=== PATIENT | female | born 1940 | race African-American/Black ===

== ENCOUNTER 2016-10-07 17:16 | Inpatient (IN) | payer OTHER ==
--- NOTE | 2016-10-07 18:35 | EKG Report ---
Test Performed on : 10/07/2016 6:13:19 PM Test Reason : age Blood Pressure : / mmHG Vent. Rate : 071 BPM Atrial Rate : 071 BPM P-R Int : 174 ms QRS Dur : 076 ms QT Int : 400 ms P-R-T Axes : 071 026 069 degrees QTc Int : 434 ms Normal sinus rhythm. Normal ECG No previous ECGs available Unconfirmed Result
--- NOTE | 2016-10-07 18:40 | PROVIDER DOCUMENTATION ---
HPI-General Adult - General Chief Complaint: General Adult Stated Complaint: FALL Time Seen by Provider: 10/07/16 18:25 Source: patient Allergies/Adverse Reactions: Patient Allergies Allergy/AdvReac Type Severity Reaction Status Date / Time Latex, Natural Rubber Allergy Unknown Verified 10/07/16 18:00 morphine Allergy ANAPHYLAXIS Verified 10/07/16 18:00 aspirin AdvReac Unknown Verified 10/07/16 18:00 ibuprofen [From Motrin] AdvReac Unknown Verified 10/07/16 18:00 Home Medications: Amlodipine [Norvasc] 10 mg PO DAILY 11/03/14 Carvedilol 6.25 mg PO BID 11/03/14 LISINOpril [Prinivil] 20 mg PO DAILY 11/03/14 Omeprazole 40 mg PO DAILY 11/03/14 PRAVAstatin [Pravachol] 40 mg PO DAILY 11/03/14 Sitagliptin Phosphate [Januvia] 100 mg PO DAILY 11/03/14 Gabapentin [Neurontin] 1,200 mg PO TID 01/09/15 Insulin NPL/Insulin Lispro [Humalog Mix 75-25 Pen] 25 unit SQ QPM 01/09/15 Insulin NPL/Insulin Lispro [Humalog Mix 75-25 Pen] 35 unit SQ QAM 01/09/15 Promethazine [Phenergan] 25 mg PO Q6H PRN PRN 10/07/16 - History of Present Illness -Gen Adult Nature of Presenting Problems: 75 year old F presents to the ED with a cc of falling. PT states that she began with a cough and diarrhea 2 weeks ago. Pt states that she later developed vomiting about a week later. Pt say her PCP on Tuesday and was given a shot that pt does not know what it was and a Phenergan RX. Pt states that vomiting and diarrhea have resolved. Pt stated today she has fallen x5 today. Pt denies SOB, chest pains, nausea, vomiting, diarrhea, and dizziness. Location of Pain/Injury: reports: none Pain Radiation: reports: no radiation Quality of Pain: reports: none Severity: reports: mild Onset/Duration: reports: this afternoon Timing: reports: still present Context/Activities at Onset: reports: none Modifying Factors: improves with: nothing Associated Symptoms: reports: denies symptoms Similar Symptoms Previously?: No Recently seen or treated by another doctor?: Yes (PCP 2 days ago ) Review of Systems - Adult - REVIEW OF SYSTEMS - ADULT Constitutional: denies: chills, fever Eyes: reports: no symptoms reported Ears, Nose, Mouth & Throat: denies: ear pain, throat pain Cardiovascular: denies: chest pain, palpitations Respiratory: reports: cough. denies: shortness of breath Gastrointestinal: denies: abdominal pain, diarrhea, nausea, vomiting Genitourinary: reports: no symptoms reported Musculoskeletal: denies: bone pain, muscle aches, muscle weakness Integumentary: reports: no symptoms reported Neurological: reports: no symptoms reported Psychiatric: reports: no symptoms reported Endocrine: reports: no symptoms reported Hematologic/Lymphatic: reports: no symptoms reported Allergic/Immunologic: reports: no symptoms reported All Other Systems: Reviewed and Negative Past History - Adult - PAST MEDICAL HISTORY-ADULT Review of Records: reports: Nursing Assessment Review, Medications Reviewed Major Childhood Illnesses: reports: denies history Cardiovascular: reports: HTN Obstetrical/Gynecological: reports: other (breast cancer) Genitourinary: reports: kidney disease (decreased function of right) Endocrine/Immune: reports: Diabetes - PRIOR SURGERIES/PROCEDURES Surgical/Procedure History: reports: appendectomy, hysterectomy - IMMUNIZATION STATUS Childhood Immunizations: See Nurse Assessment Flu Vaccine: See Nurse Assessment - SOCIAL HISTORY Smoking: cigarettes, less than 1 pack/day Provider spent 3-5 mins advising pt. on dangers of tobacco.: Discussed manners to quit use, and f/u contacts for add'l counseling. Substance Use: none/never Alcohol Use Frequency: never Physical Exam-General - PHYSICAL EXAM-ADULT Initial Vital Signs Reviewed: Yes - CONSTITUTIONAL General Appearance: appears well, alert, no apparent distress - RESPIRATORY Respiratory: chest non-tender, lungs clear, normal breath sounds - CARDIOVASCULAR Cardiovascular: normal peripheral pulses, regular rate, rhythm, no edema - GASTROINTESTINAL (ABDOMEN) Abdominal Exam: normal bowel sounds, soft, tenderness (moderate LLQ tenderness) - MUSCULOSKELETAL Back Exam: CVA tenderness (bilateral moderate tenderness) - SKIN Integumentary: normal color, normal turgor, warm/dry Progress - PLAN OF CARE/RESULTS Progress/Plan/Lab Results: plan of care: imaging, labs, fluids, EKG Orders Category Date Time Status Admit - [facility] Routine AdmDCTranf 10/07/16 20:21 Ordered Activity - Bed Rest with BRP ORDERED Care 10/07/16 20:21 Active Call Admitting on Arrival AT ADMISSION Care 10/07/16 20:22 Active Vital Signs Order ARRIVAL TO ROOM Care 10/07/16 20:21 Active Regular Diet Diet 10/07/16 20:23 Active CHEST-2 VIEWS [RAD] Stat Exams 10/07/16 18:41 Taken CBC WITH ELECTRONIC DIFF [HEME] Stat Lab 10/07/16 19:15 Completed CMP [COMPREHENSIVE METABOLIC PANEL] [CHEM] Stat Lab 10/07/16 19:15 Completed MAGNESIUM [CHEM] Stat Lab 10/07/16 19:[address] W/POSS RFLX CULT [URINALYSIS] Stat Lab 10/07/16 18:06 Ordered 0.9% Sodium Chloride Inj [Ns] 1,000 ml Med 10/07/16 18:51 Discontinued IV 999 mls/hr EKG [EKG] Stat Ther 10/07/16 18:06 Draft Laboratory Tests 10/07/16 10/07/16 10/07/16 19:15 19:15 19:15 WBC 6.31 RBC 3.94 L Hgb 12.0 Hct 37.0 MCV 93.9 MCH 30.5 MCHC 32.4 L RDW Std Deviation 14.2 Plt Count 222 MPV 11.1 H Immature Gran % (Auto) 0.2 Neut % (Auto) 55.9 Lymph % (Auto) 30.6 [place] % (Auto) 10.9 H Eos % (Auto) 2.2 Baso % (Auto) 0.2 Immature Gran # (Auto) 0.01 Neut # (Auto) 3.53 Lymph # (Auto) 1.93 [place] # (Auto) 0.69 H Eos # (Auto) 0.14 Baso # (Auto) 0.01 Sodium 137 Potassium 4.4 Chloride 100 Carbon Dioxide 27 Anion Gap 11 BUN 53 H Creatinine 2.6 H Estimated GFR/1.73 m2 18 BUN/Creatinine Ratio 20 Glucose 84 Calculated Osmolality 287 Calcium 8.8 Magnesium 1.6 Total Bilirubin 0.20 AST 26 ALT 13 Alkaline Phosphatase 70 Total Protein 7.3 Albumin 3.7 Globulin 4.0 Albumin/Globulin Ratio 1.0 Vital Signs - 24 hr 10/07/16 17:57 Pulse Rate 76 Respiratory 18 Rate Blood Pressure 169/69 Pt/Family given results. Pt will be admitted to the Hospitalist Group. PT/ Family in agreement with plan of care. - EKG 1 Time of EKG reading by physician:: 18:13 EKG Read and Signed by:: Pantera Webb EKG Interpretation (*Must complete 3 of following elements*): Normal Rate: 71 Rhythm: NSR [place]: normal - XRAY 1 XRAY Study: Chest Impression: Normal XRAY Interpretation: normal: Dr. Webb - CONSULTS/PCP/HOSPITALIST Notification #1 *Consult/PCP/Hospitalist*: Dr. Camejo Time Discussed: 20:19 Consult Disposition: Admit Departure - Departure Time of Disposition Order: 20:24 DIAGNOSIS: Acute kidney injury Disposition: ADMITTED INPATIENT 09 Certified Medical Emergency: Emergent Condition: Stable Referrals: Xavier Curtis MD [Primary Care Provider] - Attestation - Scribe Verification/Attestation Scribe:: Wanda Mena Acting as Scribe for:: Pantrea Webb Scribe documention review:: This chart was documented by a scribe and accurately reflects the service the provider performed and the decisions made by the provider. Physician Attestation - Physician Attestation I, the provider, attest to the following statement:: Pantera Webb Physician documentation Attestation:: This documentation recorded by the scribe accurately reflects the service I personally performed and the decisions made by me.
[2016-10-07] MEDS ORDERED: NS 1,000 ML IV ONE (18:51)
[2016-10-07 19:19] LABS: MANUAL DIFF NEEDED? NO
[2016-10-07 19:26] LABS: BASO% 0.2 % (0.0-0.8); EOS# 0.14 X1000 (0.0-0.7); EOS% 2.2 % (0.0-10.0); IMM GRAN# 0.01 X1000 (0.0-0.04); IMM GRAN% 0.2 % (0.0-0.5); LYMPH# 1.93 X1000 (1.2-3.4); LYMPH% 30.6 % (20.5-51.1); MCH 30.5 PG (27-31); MCHC 32.4 g/dL (33-37); MCV 93.9 FL (81-99); MONO# 0.69 X1000 (0.11-0.59); MONO% 10.9 % (1.7-9.3); MPV 11.1 FL (7.4-10.4); NEUT% 55.9 % (42.2-75.2); PLT 222 X1000 (130-400); RBC 3.94 XMIL (4.2-5.4)
[2016-10-07 20:04] LABS: ALBUMIN 3.7 g/dL (3.5-5.0); CALCIUM 8.8 mg/dL (8.8-10.2); POTASSIUM 4.4 mmol/L (3.5-5.1); TOTAL BILIRUBIN 0.2 mg/dL (0.20-1.00); TOTAL PROTEIN 7.3 g/dL (6.3-8.3)
[2016-10-07] MEDS ORDERED: HUMALOG MIX 75/25 SUBQ SCH (21:43)
[2016-10-07] MEDS: COREG PO SCH (22:24)
[2016-10-07] MEDS: MAG-OX PO SCH (22:24)
[2016-10-07] MEDS: NS 1,000 ML IV SCH (22:46)
[2016-10-08] MEDS: PRILOSEC PO SCH (06:35)
--- NOTE | 2016-10-08 08:09 | Diag Imaging Result Document ---
PROCEDURE NAME: CHEST-2 VIEWS - 10/07/2016 CHEST, TWO VIEWS: INDICATION: Cough. COMPARISON: No comparison studies. FINDINGS: The cardiomediastinal silhouette is within normal limits. The pulmonary vasculature is not congested. No infiltrates or effusions are identified. There is no pneumothorax. There are surgical clips, left axilla. There is spondylosis and mild compression deformity, thoracic spine. Old healed fracture of the left proximal humerus is noted. IMPRESSION: No acute cardiopulmonary abnormality.
[2016-10-08 08:29] LABS: ALBUMIN 3.1 g/dL (3.5-5.0); CALCIUM 8.3 mg/dL (8.8-10.2); MAGNESIUM 1.5 mg/dL (1.5-2.7); POTASSIUM 4.1 mmol/L (3.5-5.1); TOTAL BILIRUBIN 0.3 mg/dL (0.20-1.00); TOTAL PROTEIN 6.1 g/dL (6.3-8.3)
[2016-10-08 08:32] LABS: HEMATOCRIT 32.5 % (37.0-47.0); HEMOGLOBIN 10.5 g/dL (12.0-16.0); MCH 30.6 PG (27-31); MCHC 32.3 g/dL (33-37); MCV 94.8 FL (81-99); MPV 11.2 FL (7.4-10.4); RBC 3.43 XMIL (4.2-5.4)
[2016-10-08] MEDS ORDERED: HUMALOG MIX 75/25 SUBQ SCH (09:00)
[2016-10-08] MEDS ORDERED: PRINIVIL PO SCH (09:00)
[2016-10-08] MEDS: HUMALOG MIX 75/25 SUBQ SCH ×2 (10:00→17:49)
[2016-10-08] MEDS: NEURONTIN PO SCH ×3 (10:01→17:49)
[2016-10-08] MEDS: NORVASC PO SCH ×2 (10:01→10:11)
[2016-10-08] MEDS: MAG-OX PO SCH ×2 (10:01→10:10)
[2016-10-08] MEDS: COREG PO SCH ×2 (10:01→20:39)
[2016-10-08] MEDS: VITAMIN D PO SCH ×2 (10:01→10:12)
[2016-10-08] MEDS: JANUVIA PO SCH ×2 (10:02→10:09)
--- NOTE | 2016-10-08 10:29 | PROGRESS NOTE ---
DATE: 10/08/2016 SUBJECTIVE: The patient states she is still having diarrhea. Denies any blood in her stool. Denies any nausea or vomiting. Denies any true abdominal pain. Denies fevers or chills. Denies chest pain. OBJECTIVE: Vital signs: Temperature 98.5. Pulse 70. Respiratory 18. BP 121/49. General: Patient is well developed, well nourished. She is pleasant to talk with. She is in no respiratory distress. She is awake, alert, and oriented. Neck: Supple. CV: Regular rate. Chest: Clear. Abdomen: Soft. Diffusely, very mildly tender. Extremities: Moves all extremities. Neurologic: No changes. LABORATORY DATA: CBC normal. BUN 43. Creatinine 2.0. Glucose 109. Albumin 3.1. ASSESSMENT: 1. Acute diarrhea of uncertain etiology, likely viral. Stool studies pending. 2. Acute renal failure. Serum creatinine has improved since last night, although, she has only been on IV fluids for approximately 8-12 hours. Creatinine is now 2.0. 3. Presyncope. Patient has not been out of bed since her admission. We will continue to follow. 4. Hypertension. Will hold her lisinopril today as this certainly could be worsening her kidney function. Likely dehydration is what started the issue. 5. Diabetes. Will continue her home medication. PLAN: As noted, we will hold her lisinopril, continue IV fluids, continue to follow, and will recheck her creatinine in the morning. Hopefully, home in a few days.
--- NOTE | 2016-10-08 12:10 | HISTORY AND PHYSICAL ---
PRIMARY CARE PHYSICIAN: Xavier Curtis MD CHIEF COMPLAINT: Falling x5 at home but yesterday HISTORY OF PRESENTING ILLNESS: This is a 75-year-old female who presented to [facility] ER with complaints of a fall x5. States that about 2 weeks ago, she had a cough and diarrhea and later developed vomiting. She saw her primary care physician at that time, who gave her a shot, unknown what the shot was and a Phenergan prescription. Stated that the vomiting and diarrhea had resolved but that prior to arriving, she had fallen at home 5 times. She denied any dizziness, headache, and blurred vision. Workup in the ER showed a BUN of 53 and a creatinine of 2.6. It appears her baseline is anywhere from 1.5 to 1.8. Chest x-ray showed no acute cardiopulmonary abnormality. She was admitted for further evaluation and treatment. PAST MEDICAL HISTORY: Fibromyalgia, diabetes type 2, breast cancer, and a small bowel obstruction. PAST SURGICAL HISTORY: Left mastectomy, hysterectomy, appendectomy, and lysis of lesions. FAMILY HISTORY: Coronary artery disease, and congestive heart failure. SOCIAL HISTORY: She currently lives with family. Smokes 3-4 cigarettes a day and has done so for the past 50 years. Denies any alcohol or illicit drug use. ALLERGIES: Codeine, latex, and natural rubber, morphine and aspirin. HOME MEDICATIONS: She takes Norvasc 10 mg p.o. daily, Coreg 6.25 mg p.o. b.i.d., vitamin D3 5000 units p.o. daily, Neurontin 1200 mg p.o. t.i.d., Humalog 75/25 pen 25 units q.p.m. and 35 units subcutaneous q.a.m., Prinivil 20 mg p.o. daily, magnesium oxide 800 mg p.o. b.i.d., omeprazole 40 mg p.o. daily, Pravachol 40 mg p.o. daily, and Januvia 100 mg p.o. daily. LABORATORY DATA: Showed a white blood cell count of 6.31, hemoglobin 12, hematocrit 37, platelets 222,000. Sodium 137, potassium 4.4, chloride 100, CO2 27, BUN of 53, creatinine 2.6, magnesium 1.6. Chest x-ray showed no acute cardiopulmonary abnormality. EKG showed normal sinus rhythm at 71. REVIEW OF SYSTEMS: She denied any fever, chills, blurred vision, dizziness, chest pain, coughing, shortness of breath. She denied any constipation, diarrhea, burning or hurting with urination. PHYSICAL EXAMINATION: VITAL SIGNS: Temperature 97.7 degrees, pulse 73, respirations 18, blood pressure is 165/44, saturating 98% on room air. GENERAL: This is a 75-year-old female, who is sitting on the side of the bed. Answers questions appropriately. HEENT: Normocephalic and atraumatic. Pupils are equal, round, reactive to light. Extraocular movements are intact. The oropharynx and nares are clear. NECK: Supple. LUNGS: Clear to auscultation bilaterally with equal lung expansion and chest wall movement. HEART: With regular rate and rhythm. No murmurs, rubs, or gallops. ABDOMEN: Soft, nontender, nondistended. Bowel sounds are present x4 quadrants. EXTREMITIES: No clubbing, cyanosis, or edema. NEUROLOGICAL: The cranial nerves 2-12 appear grossly intact. ASSESSMENT: 1. Fall. 2. Acute kidney injury. 3. Diabetes type 2. 4. Tobacco abuse. PLAN: She was admitted to the medical unit at [facility]. Placed on a regular diet. We will check a urinalysis today. Physical therapy evaluation. Continue her home medications as previously identified, except we will hold her lisinopril. She has normal saline at 75 mL an hour. We will recheck a CBC and BMP in the a.m. Dictated by SIVAN Griffin for Jean Camejo MD
[2016-10-08] MEDS: NS 1,000 ML IV SCH (12:50)
[2016-10-08] MEDS ORDERED: PNEUMOVAX 23 IM ONE (19:15)
[2016-10-08] MEDS: PRAVACHOL PO SCH (20:39)
[2016-10-09] MEDS: NS 1,000 ML IV SCH ×2 (02:00→16:37)
[2016-10-09] MEDS ORDERED: D50W SYRINGE IV ONE (05:58)
[2016-10-09 05:59] LABS: MANUAL DIFF NEEDED? NO
[2016-10-09 06:13] LABS: BASO% 0.2 % (0.0-0.8); EOS# 0.16 X1000 (0.0-0.7); EOS% 3.4 % (0.0-10.0); HEMATOCRIT 36.5 % (37.0-47.0); IMM GRAN# 0.03 X1000 (0.0-0.04); IMM GRAN% 0.6 % (0.0-0.5); LYMPH# 1.44 X1000 (1.2-3.4); LYMPH% 30.8 % (20.5-51.1); MCH 30.7 PG (27-31); MCHC 32.9 g/dL (33-37); MCV 93.4 FL (81-99); MONO# 0.53 X1000 (0.11-0.59); MONO% 11.3 % (1.7-9.3); MPV 11.6 FL (7.4-10.4); NEUT% 53.7 % (42.2-75.2); PLT 201 X1000 (130-400); RBC 3.91 XMIL (4.2-5.4)
[2016-10-09 06:29] LABS: CALCIUM 8.6 mg/dL (8.8-10.2); POTASSIUM 4.6 mmol/L (3.5-5.1)
[2016-10-09] MEDS: PRILOSEC PO SCH (06:41)
[2016-10-09] MEDS: COREG PO SCH ×2 (08:30→20:40)
[2016-10-09] MEDS: NEURONTIN PO SCH ×3 (08:32→16:39)
[2016-10-09] MEDS: HUMALOG MIX 75/25 SUBQ SCH ×2 (08:32→18:42)
[2016-10-09 09:06] LABS: HEMOGLOBIN A1C 6.2 % (4.8-6.0)
--- NOTE | 2016-10-09 10:09 | PROGRESS NOTE ---
DATE: 10/09/2016 SUBJECTIVE: Patient resting quietly in bed. States legs are aching. Otherwise , no complaints voiced. The patient also states that she had a low with her blood sugar this morning and states that her insulin she is supposed to take 35 units in the morning and 25 units in the p.m. OBJECTIVE: Vital signs: Temperature 97.4, pulse 66. Respirations 16. Blood pressure 182/79, saturating 100% on room air. General: This is a 75-year-old, female lying in the bed, and answers questions appropriately. HEENT: Normocephalic and atraumatic. Pupils are equal, round, reactive to light. Extraocular movements are intact. Oropharynx and nares are clear. Neck: Supple. Lungs: Clear to auscultation bilaterally with equal lung expansion and chest wall movement. Heart with regular rate and rhythm. No murmurs, rubs, or gallops. Abdomen: Abdomen is soft, nontender, nondistended. Bowel sounds are present x4 quadrants. Extremities: No clubbing, cyanosis, or edema. Neurological: Cranial nerves 2-12 appear grossly intact. LABORATORY DATA: Shows a white blood cell count of 4.67, hemoglobin 12, hematocrit 36.5, platelets 201. Sodium of 141, potassium 4.6, chloride 107, CO2 of 23, BUN of 35 , creatinine 1.6, glucose was 45 this morning. Hemoglobin A1c was 6.2. Triglycerides of 120, cholesterol 221. ASSESSMENT AND PLAN: 1. Acute diarrhea of uncertain etiology. The patient states that she is no longer having any diarrhea. We have ordered stool studies, but she has not had any stool since that was ordered yesterday morning. Instructed patient that if she does have a stool that we do still need a sample, so that we can do the stool studies. We will continue to follow. 2. Acute renal failure. Her serum creatinine continues to improve. Continue her IV hydration and recheck a BMP in the a.m. 3. Hypertension. We will continue her medication regimen at this time. We continue to hold her lisinopril as that certainly could be causing her acute renal failure. 4. Diabetes. The patient was noted to have some hypoglycemia this morning. She felt like it may be because we were giving her insulin wrong, but in review, her insulin is ordered correctly. She takes Humalog 75/25, 35 units q.a.m. and 25 units q.p.m. and that has been ordered correctly since admission. Dictated by SIVAN Griffin for Jose Gerard MD agree with above, home in am if stable [facility] MTDD
[2016-10-09] MEDS: NORCO-7.5 PO PRN ×2 (16:18→20:39)
[2016-10-09] MEDS: PRAVACHOL PO SCH (20:40)
[2016-10-10] MEDS: NORCO-7.5 PO PRN ×2 (06:24→12:53)
[2016-10-10 06:25] LABS: MANUAL DIFF NEEDED? NO
[2016-10-10] MEDS: PRILOSEC PO SCH (06:25)
[2016-10-10] MEDS: NS 1,000 ML IV SCH ×2 (06:27→16:50)
[2016-10-10 06:34] LABS: BASO% 0.3 % (0.0-0.8); EOS# 0.13 X1000 (0.0-0.7); EOS% 3.4 % (0.0-10.0); HEMATOCRIT 33.6 % (37.0-47.0); HEMOGLOBIN 10.5 g/dL (12.0-16.0); IMM GRAN# 0.01 X1000 (0.0-0.04); IMM GRAN% 0.3 % (0.0-0.5); LYMPH# 1.62 X1000 (1.2-3.4); LYMPH% 42.2 % (20.5-51.1); MCH 29.3 PG (27-31); MCHC 31.3 g/dL (33-37); MCV 93.9 FL (81-99); MPV 11.2 FL (7.4-10.4); NEUT% 40.8 % (42.2-75.2); PLT 201 X1000 (130-400); RBC 3.58 XMIL (4.2-5.4)
[2016-10-10 06:43] LABS: CALCIUM 8.9 mg/dL (8.8-10.2); POTASSIUM 5.3 mmol/L (3.5-5.1)
[2016-10-10] MEDS: NEURONTIN PO SCH ×3 (08:52→16:50)
[2016-10-10] MEDS: COREG PO SCH ×2 (08:52→20:35)
[2016-10-10] MEDS: HUMALOG MIX 75/25 SUBQ SCH ×3 (08:53→18:50)
[2016-10-10] MEDS ORDERED: HUMALOG MIX 75/25 SUBQ SCH (16:15)
--- NOTE | 2016-10-10 16:39 | PROGRESS NOTE ---
DATE: 10/10/2016 SUBJECTIVE: Patient has no complaints. OBJECTIVE: Vital Signs: Blood pressure 175/49, heart rate 61, respiratory rate 18, temperature 98.4 degrees. Cardiovascular: Regular rate and rhythm. Pulmonary: Bilateral breath sounds. Clear to auscultation. GI: Soft, nontender, nondistended. Bowel sounds are positive. LABORATORY DATA: White count 3.8, hemoglobin and hematocrit 10 and 33, platelets 201,000. Chemistry: Potassium is 5.3, BUN and creatinine of 32, 1.5. Sugars have actually been better controlled. PROBLEM LIST: 1. Diarrhea. She appears to be stabilizing. 2. Acute kidney injury. She is improving on current regimen. 3. She had episodic hyperglycemia. Her sugars have overall looked okay, but I guess she dropped into reportedly down to 30, that was this yesterday morning. Her A1C is only 6.2, so I will drop her nighttime NPH to 20 instead of 30 and we will continue to follow. 4. Weakness. We will work on physical therapy and follow closely. She is complaining of a lot of cramping. I am just going to check a CK level because she is on a statin and we will set up home physical therapy and home to assist with rehabilitation. Likely discharge tomorrow if stable.
[2016-10-10] MEDS: PRAVACHOL PO SCH (20:35)
[2016-10-11] MEDS: NORCO-7.5 PO PRN (00:56)
[2016-10-11] MEDS: PRILOSEC PO SCH (06:12)
[2016-10-11] MEDS: NS 1,000 ML IV SCH (06:21)
[2016-10-11 06:57] LABS: HEMATOCRIT 32.1 % (37.0-47.0); HEMOGLOBIN 10.2 g/dL (12.0-16.0); MCH 29.8 PG (27-31); MCHC 31.8 g/dL (33-37); MCV 93.9 FL (81-99); MPV 11.4 FL (7.4-10.4); RBC 3.42 XMIL (4.2-5.4)
[2016-10-11 07:19] LABS: CALCIUM 8.4 mg/dL (8.8-10.2)
[2016-10-11] MEDS: HUMALOG MIX 75/25 SUBQ SCH (08:45)
[2016-10-11] MEDS: COREG PO SCH (08:46)
[2016-10-11] MEDS: NEURONTIN PO SCH ×2 (08:46→13:21)
[2016-10-11 11:28] VITALS: BP 176/53
--- NOTE | 2016-10-11 22:29 | DISCHARGE SUMMARY ---
ADMISSION DATE: 10/07/2016 DISCHARGE DATE: 10/11/2016 CHIEF COMPLAINT: Weakness and cramping in her lower extremities. ADMISSION DIAGNOSES: 1. Fall. 2. Acute kidney injury. 3. Type 2 diabetes. DISCHARGE DIAGNOSES: 1. Fall. 2. Type 2 diabetes. 3. Generalized weakness. 4. Acute kidney injury. 5. Hypoglycemia but keeps on reporting it is hyperglycemia. 6. Some diarrhea which was noninfectious. HOSPITAL COURSE: Briefly, this 75-year-old female presents from home with cough, diarrhea and vomiting was given Phenergan as outpatient but did not improve. She came in with a BUN and creatinine of 53 and 2.6 with a baseline between 1.5 and 1.8. Chest x-ray was normal. She was placed in the hospital, given IV fluids, slowly clinically improved. Lisinopril was held. IV fluids were continued. Her creatinine improved. By the I think she was down to baseline but she was still having a lot of cramping. She had some diarrhea, was , and she had some episodic hypoglycemia associated. On the her vitals had stabilized. Her laboratory data hemoglobin and hematocrit was 10 and 30. Chemistry showed a BUN and creatinine 29 and 1.6. Low sugar was 67 but the rest of them were stable. She did have a mild elevation in her CPK which may be related to her Pravachol. At this point I am just going to recommend holding that because she is having cramping and she had mild elevation in her CPK. DISCHARGE MEDICATIONS: 1. Coreg 6.25. 2. Omeprazole 40 daily. 3. Lispro 35 in the morning and then 20 at night. 4. Neurontin 600 t.i.d. 5. Phenergan p.r.n. 6. Colace 100 b.i.d. as needed for bowels. 7. Again we have held her chlorthalidone and Pravachol till followup with her PCP, Dr. Curtis. I would repeat BNP in 1-2 weeks and follow up as needed. We did set her up with physical therapy at home just to aid with rehabilitation. TOTAL TIME SPENT ON DISCHARGE: 32 minutes.
== END 2016-10-11 15:21 | disposition home health service (06) | DRG 684 ==
LOC: P.ED 17:16 → P.MEDSURG 20:49 → OBSVTOIN 20:49 → P.MEDSURG 10-10 09:06
PROVIDERS: ATTEND Internal Medicine
DX: N17.9 Acute kidney failure, unspecified (principal); E11.649 Type 2 diabetes mellitus with hypoglycemia without coma; F17.210 Nicotine dependence, cigarettes, uncomplicated; M79.7 Fibromyalgia; E86.0 Dehydration; K52.9 Noninfective gastroenteritis and colitis, unspecified; Z91.81 History of falling; Z85.3 Personal history of malignant neoplasm of breast; Z82.49 Family history of ischemic heart disease and other diseases of the circulatory system; Z79.4 Long term (current) use of insulin; Z79.899 Other long term (current) drug therapy
CPT/HCPCS: 36415; 71020; 80048; 80053; 80061; 82550; 82948; 83036; 83721; 83735; 85025; 85027; 87045; 87046; 87324; 89055; 93005; 99285; J1815; J7030

== ENCOUNTER 2017-01-25 02:28 | Inpatient (IN) ==
[2017-01-25] MEDS ORDERED: D5 NS 1,000 ML IV ONE (02:45)
[2017-01-25] MEDS ORDERED: D5 NS 1,000 ML ONE (02:46)
[2017-01-25 02:54] LABS: MANUAL DIFF NEEDED? NO
--- NOTE | 2017-01-25 03:21 | EKG Report ---
Test Performed on : 01/25/2017 03:10:54 AM Test Reason : cp Blood Pressure : / mmHG Vent. Rate : 052 BPM Atrial Rate : 052 BPM P-R Int : 186 ms QRS Dur : 074 ms QT Int : 464 ms P-R-T Axes : 074 028 069 degrees QTc Int : 431 ms Sinus bradycardia. Otherwise normal ECG When compared with ECG of 07-OCT-2016 18:13, No significant change was found Confirmed by Ranjit Romero MD ([id number]) on 01/26/2017 8:38:51 PM
[2017-01-25 03:24] LABS: BASO% 0.2 % (0.0-0.8); EOS# 0.21 X1000 (0.0-0.7); EOS% 3.9 % (0.0-10.0); HEMATOCRIT 35.1 % (37.0-47.0); HEMOGLOBIN 11.5 g/dL (12.0-16.0); IMM GRAN# 0.01 X1000 (0.0-0.04); IMM GRAN% 0.2 % (0.0-0.5); LYMPH# 1.61 X1000 (1.2-3.4); LYMPH% 29.9 % (20.5-51.1); MCH 30.8 PG (27-31); MCHC 32.8 g/dL (33-37); MCV 94.1 FL (81-99); MONO# 0.63 X1000 (0.11-0.59); MONO% 11.7 % (1.7-9.3); MPV 10.7 FL (7.4-10.4); NEUT% 54.1 % (42.2-75.2); PLT 202 X1000 (130-400); RBC 3.73 XMIL (4.2-5.4)
[2017-01-25 03:40] LABS: AGAP 12; ALBUMIN 3.7 g/dL (3.5-5.0); ALKALINE PHOSPHATASE 87 U/L (32-104); BUN 52 mg/dL (8-22); CALCIUM 9.2 mg/dL (8.8-10.2); CHLORIDE 106 mmol/L (98-107); COSMO 289; GOT 18 U/L (10-30); GPT 13 U/L (10-36); POTASSIUM 5.3 mmol/L (3.5-5.1); SODIUM 136 mmol/L (136-145); TCO2 19 mmol/L (25-35); TOTAL BILIRUBIN < 0.15 mg/dL (0.20-1.00); TOTAL PROTEIN 7.3 g/dL (6.3-8.3)
[2017-01-25] MEDS ORDERED: NS 1,000 ML IV ONE (05:13)
[2017-01-25 15:08] LABS: HEMOGLOBIN A1C 5.9 % (4.8-6.0)
[2017-01-25] MEDS ORDERED: MOTRIN PO PRN (16:00)
[2017-01-25] MEDS: HUMALOG DOSE (PARKWAY) SUBQ SCH ×2 (16:55→21:20)
[2017-01-25] MEDS: NEURONTIN PO SCH (17:04)
--- NOTE | 2017-01-25 17:51 | HISTORY AND PHYSICAL ---
PRIMARY CARE PHYSICIAN: Dr. Curtis. CHIEF COMPLAINT: Found unresponsive in bed by with low blood sugar. HISTORY OF PRESENTING ILLNESS: This is a 76-year-old female who presented to [facility] via EMS early this morning after her found her next to him in the bed unresponsive. He called 911. EMS arrived. Her blood sugar was noted to be 25. They gave her an amp of D50 and brought her into the emergency room. When she arrived, her blood sugar was up to 350 but she was still unresponsive at that time. She was given D5 at 100 mL an hour. She finally aroused and is alert and awake but was admitted for further evaluation and treatment. PAST MEDICAL HISTORY: Of hypertension, breast cancer, chronic kidney disease and diabetes type 2. PAST SURGICAL HISTORY: Appendectomy and a hysterectomy. FAMILY HISTORY: Noncontributory. SOCIAL HISTORY: She currently lives with family. Denies any tobacco, alcohol, or illicit drug use. ALLERGIES: Codeine, latex natural rubber, morphine and aspirin. HOME MEDICATIONS: She takes Norvasc 10 mg p.o. daily. Lipitor 40 mg p.o. daily. Coreg 6.25 mg p.o. b.i.d. Chlorthalidone 25 mg p.o. daily. Neurontin 600 mg p.o. t.i.d. [place] 7.5 p.o. q.6 hours p.r.n. Ibuprofen 400 mg as directed. Humalog 75/25 pen 25 units subcutaneous q.p.m., 35 units subcutaneous q.a.m. Cozaar 50 mg p.o. daily. Magnesium oxide 800 mg p.o. b.i.d. Omeprazole 40 mg p.o. daily. Phenergan 25 mg p.o. q.6 hours p.r.n. we will hold. LABORATORY DATA: Showed a white blood cell count of 5.38, hemoglobin 11.5, hematocrit 35.1, platelets 202,000. Sodium 136, potassium 5.3, chloride 106, CO2 19, BUN of 52 with a creatinine of 2.1. Blood sugar on arrival was 156. Again it is noted she was 25 at home when EMS arrived. EKG showed sinus bradycardia at 52. Her hemoglobin A1c is 5.9. REVIEW OF SYSTEMS: She denied any fever, chills, blurred vision, dizziness, chest pain, coughing, shortness of breath. She denied any constipation, diarrhea, burning or hurting with urination. PHYSICAL EXAMINATION: On arrival she had a temperature of 94 degrees with a pulse of 62, respirations 14, blood pressure 156/63, saturating 99% on room air. Currently she is at 98.7 temp, blood pressure 150/47, saturating 100% on room air. GENERAL: This is a 76-year-old female lying in the bed, and answers questions appropriately at this time. HEENT: Normocephalic and atraumatic. Pupils are equal, round, reactive to light. Extraocular movements are intact. Oropharynx and nares are clear. NECK: Supple. LUNGS: Clear to auscultation bilaterally with equal lung expansion and chest wall movement. HEART: With regular rate and rhythm. No murmurs, rubs, or gallops. ABDOMEN: Soft, nontender, nondistended. Bowel sounds are present x4 quadrants. EXTREMITIES: There is no clubbing, cyanosis, or edema. NEUROLOGICAL: The cranial nerves 2-12 are grossly intact. ASSESSMENT: 1. Diabetes type 2 with hypoglycemia. 2. Hypothermic. 3. Chronic kidney disease. 4. Hypertension. PLAN: She was admitted to the medical unit at [place], placed on telemetry, diabetic diet. She was initially placed on D5 at 100. Her blood sugars have now normalized. We discontinued that and she was placed on her home medication regimen. Pattern blood sugars with sliding scale insulin. We will recheck a CBC and a BMP in the a.m. Place her on a diabetic diet. Dictated by SIVAN Griffin for Jean Camejo MD cc: SIVAN Griffin MD Malcolm R. Hendricks, MD
[2017-01-25] MEDS: MAG-OX PO SCH (20:22)
[2017-01-25] MEDS: COREG PO SCH ×2 (20:22→20:23)
[2017-01-25] MEDS ORDERED: HUMALOG MIX 75/25 SUBQ SCH (21:00)
[2017-01-26] MEDS: NORCO-7.5 PO PRN ×2 (00:19→10:54)
[2017-01-26 05:56] LABS: MANUAL DIFF NEEDED? NO
[2017-01-26] MEDS: HUMALOG DOSE (PARKWAY) SUBQ SCH ×2 (06:15→10:56)
[2017-01-26 06:46] LABS: CALCIUM 8.6 mg/dL (8.8-10.2); POTASSIUM 5.9 mmol/L (3.5-5.1)
[2017-01-26] MEDS ORDERED: PRILOSEC PO SCH (07:00)
[2017-01-26 07:21] LABS: BASO% 0.2 % (0.0-0.8); EOS# 0.26 X1000 (0.0-0.7); EOS% 5.7 % (0.0-10.0); HEMATOCRIT 36.5 % (37.0-47.0); HEMOGLOBIN 11.9 g/dL (12.0-16.0); IMM GRAN# 0.01 X1000 (0.0-0.04); IMM GRAN% 0.2 % (0.0-0.5); LYMPH% 41.5 % (20.5-51.1); MCH 30.9 PG (27-31); MCHC 32.6 g/dL (33-37); MCV 94.8 FL (81-99); MONO% 13.1 % (1.7-9.3); MPV 10.8 FL (7.4-10.4); NEUT% 39.3 % (42.2-75.2); PLT 193 X1000 (130-400); RBC 3.85 XMIL (4.2-5.4)
[2017-01-26] MEDS: COREG PO SCH (08:40)
[2017-01-26] MEDS: MAG-OX PO SCH (08:41)
[2017-01-26] MEDS: NEURONTIN PO SCH ×2 (08:41→12:46)
[2017-01-26] MEDS ORDERED: HUMALOG MIX 75/25 SUBQ SCH (09:00)
[2017-01-26] MEDS ORDERED: NORVASC PO SCH (09:00)
[2017-01-26] MEDS ORDERED: HYGROTON PO SCH (09:00)
[2017-01-26] MEDS ORDERED: COZAAR PO SCH (09:00)
[2017-01-26 11:03] VITALS: BP 138/44
[2017-01-26] MEDS ORDERED: HUMALOG MIX 75/25 ONE (12:00)
[2017-01-26] MEDS ORDERED: KAYEXALATE PO ONE (12:08)
[2017-01-26] MEDS ORDERED: LIPITOR PO SCH (21:00)
--- NOTE | 2017-01-27 04:52 | DISCHARGE SUMMARY ---
ADMISSION DATE: 01/25/2017 DISCHARGE DATE: 01/26/2017 PRIMARY CARE PHYSICIAN: Dr. Xavier Curtis. ADMISSION DIAGNOSES: 1. Diabetes type 2, with hypoglycemia. 2. Hypothermia. 3. Chronic kidney disease. 4. Hypertension. DISCHARGE DIAGNOSES: 1. Diabetes type 2, with hypoglycemic episodes. 2. Hypothermia, resolved. 3. Chronic kidney disease. 4. Hypertension. 5. Hyperkalemia. SUMMARY OF FINDINGS: This is a 76-year-old female who presented to the emergency room after her found her next him in the bed unresponsive. Called 911. When EMS arrived, her blood sugar was 25. They gave her an amp of D50 and brought her to the emergency room. When she arrived to the emergency room, her blood sugar was registering 350. She was still unresponsive at that time. She was given D5 at 100 mL an hour. She aroused, and has been alert and awake since then. She was admitted. We checked her hemoglobin A1c, and it was noted to be 5.9. Her creatinine was 2.1 on arrival. Today, it is down to 1.7. She has a slight elevation in her potassium today at 5.9. We are going to give her Kayexalate 15 g p.o. x1 today. Blood sugars are still somewhat erratic. During the night last night at 1:09, she had another hypoglycemic event at 48, but she did receive her Humalog 75/25, 25 units. We are going to decrease that to 15 units subcutaneous q.p.m., and it is felt that she can safely be discharged home to follow up with her primary care physician in 1-2 weeks. She will call his office for an appointment. She will also have home health through [facility]. DISCHARGE MEDICATIONS: 1. Norvasc 10 mg p.o. daily. 2. Atorvastatin 40 mg p.o. daily. 3. Coreg 6.25 mg p.o. b.i.d. 4. Chlorthalidone 25 mg p.o. daily. 5. Colace liquid 100 mg p.o. b.i.d. 6. Neurontin 600 mg p.o. t.i.d. 7. [place] 7.5 one p.o. q.6 hours p.r.n. 8. Ibuprofen 400 mg as directed. 9. Humalog Pen 75/25. She will take 35 units subcutaneous q.a.m. and 15 units subcutaneous q.p.m. 10. Cozaar 50 mg p.o. daily. 11. Magnesium oxide 800 mg p.o. b.i.d. 12. Omeprazole 40 mg p.o. daily. 13. Phenergan 25 mg p.o. q.6 hours p.r.n. TIME SPENT: 35 minutes. Dictated by SIVAN Griffin for Jose Gerard MD cc: SIVAN Griffin MD Malcolm R. Hendricks, MD
--- NOTE | 2017-01-28 16:51 | PROVIDER DOCUMENTATION ---
This chart was entered by Theresa Brady, acting as scribe for Ranjit Romero MD. HPI-General Adult - General Chief Complaint: Low Blood Sugar Stated Complaint: low blood sugar Time Seen by Provider: 01/25/17 02:54 Source: patient Allergies/Adverse Reactions: Patient Allergies Allergy/AdvReac Type Severity Reaction Status Date / Time codeine Allergy ITCHING Verified 01/25/17 02:33 Latex, Natural Rubber Allergy Unknown Verified 01/25/17 02:33 morphine Allergy ANAPHYLAXIS Verified 01/25/17 02:33 aspirin AdvReac Unknown Verified 01/25/17 02:33 Home Medications: Home Medication List Medication Instructions Recorded Confirmed Last Taken Type Carvedilol 6.25 mg PO BID 11/03/14 01/25/17 06/21/15 09:00 History Omeprazole 40 mg PO DAILY 11/03/14 10/07/16 06/21/15 09:00 History Gabapentin [Neurontin] 600 mg PO TID 01/09/15 01/25/17 06/21/15 09:00 History Insulin NPL/Insulin Lispro 35 unit SQ QAM 01/09/15 01/25/17 06/21/15 09:00 History [Humalog Mix 75-25 Pen] Docusate Sodium [Colace Liquid] 100 mg PO BID #60 udc 04/02/16 10/07/16 Unknown Rx Promethazine [Phenergan] 25 mg PO Q6H PRN PRN 10/07/16 10/07/16 Unknown History ATORVAstatin [Lipitor] 40 mg PO DAILY 01/25/17 01/25/17 Unknown History Amlodipine [Norvasc] 10 mg PO DAILY 01/25/17 01/25/17 Unknown History Chlorthalidone 25 mg PO DAILY 01/25/17 01/25/17 Unknown History Hydrocodone/APAP 7.5 mg/325 mg 1 each PO Q6H PRN PRN 01/25/17 01/25/17 Unknown History [[place]-7.5] Ibuprofen 400 mg PO DIRECTED 01/25/17 01/25/17 Unknown History Losartan [Cozaar] 50 mg PO DAILY 01/25/17 01/25/17 Unknown History Magnesium Oxide 800 mg PO BID 01/25/17 01/25/17 Unknown History Insulin NPL/Insulin Lispro 15 unit SQ QPM #0 01/26/17 01/25/17 06/21/15 09:00 Rx [Humalog Mix 75-25 Pen] - History of Present Illness -Gen Adult Nature of Presenting Problems: pt arrived by EMS to ER with cc of low blood sugar and unresponsiveness. EMS states that found her in bed next to her and she was unresponsive when EMS arrived her blood sugar was 25, they gave her an AMP of D50 and it brought her sugar up to 350 but pt is still unresponsive Location of Pain/Injury: reports: none Pain Radiation: reports: no radiation Quality of Pain: reports: none Onset/Duration: reports: just prior to arrival Timing: reports: gone now (looking around confused) Context/Activities at Onset: reports: none Modifying Factors: improves with: nothing Similar Symptoms Previously?: No Recently seen or treated by another doctor?: No - Diabetes Related Context Context: reports: low blood sugar Review of Systems - Adult - REVIEW OF SYSTEMS - ADULT Constitutional: denies: chills, fever, fatique Eyes: denies: discharge, dry eyes, blurred vision Ears, Nose, Mouth & Throat: reports: no symptoms reported Cardiovascular: reports: no symptoms reported Respiratory: reports: no symptoms reported Gastrointestinal: reports: no symptoms reported Genitourinary: reports: no symptoms reported Musculoskeletal: reports: no symptoms reported Integumentary: reports: no symptoms reported Neurological: reports: other (unresponsive). denies: loss of balance, numbness , paresthesia, seizure Psychiatric: reports: no symptoms reported Endocrine: reports: other (low blood sugar) Hematologic/Lymphatic: reports: no symptoms reported Allergic/Immunologic: reports: no symptoms reported All Other Systems: Reviewed and Negative Past History - Adult - PAST MEDICAL HISTORY-ADULT Review of Records: reports: Old Records Reviewed, Nursing Assessment Review Major Childhood Illnesses: reports: denies history Cardiovascular: reports: HTN Obstetrical/Gynecological: reports: other (breast cancer) Genitourinary: reports: kidney disease (decreased function of right) Endocrine/Immune: reports: Diabetes - PRIOR SURGERIES/PROCEDURES Surgical/Procedure History: reports: appendectomy, hysterectomy - IMMUNIZATION STATUS Childhood Immunizations: See Nurse Assessment Flu Vaccine: See Nurse Assessment Physical Exam-General - PHYSICAL EXAM-ADULT Initial Vital Signs Reviewed: Yes - CONSTITUTIONAL General Appearance: moderate distress, lethargic, slow to respond - EYES Eyes: PERRL/EOMI, pink conjunctivae - HEAD, EARS, NOSE, MOUTH & THROAT HENMT: moist mucous membranes, normal ENT inspection, TMs normal, pharynx normal - NECK Neck: non-tender, full range of motion - RESPIRATORY Respiratory: chest non-tender, lungs clear, normal breath sounds, no pleuratic chest pain, no respiratory distress, no accessory muscle use - CARDIOVASCULAR Cardiovascular: normal peripheral pulses, regular rate, rhythm, no edema, no gallop, no JVD, no murmur - GASTROINTESTINAL (ABDOMEN) Abdominal Exam: normal bowel sounds, non tender, soft - LYMPHATIC Lymphatic: no adenopathy - MUSCULOSKELETAL Extremity: normal range of motion, non-tender, normal gait - SKIN Integumentary: normal color, normal turgor, warm/dry - NEUROLOGIC Neurologic: grossly normal, no motor/sensory deficits - PSYCHIATRIC Psych/Mental Status: normal mood/affect, normal thought content, normal thought process, oriented x 3 Progress - PLAN OF CARE/RESULTS Progress/Plan/Lab Results: Vital Signs - 8 hr 01/25/17 02:29 01/25/17 02:47 Temperature 94 F L Pulse Rate 54 L 62 Respiratory Rate 15 14 Blood Pressure 152/72 O2 Sat by Pulse Oximetry 99 99 Orders Category Date Time Status CBC WITH DIFF [HEME] Stat Lab 01/25/17 02:35 Results COMPREHENSIVE METABOLIC PANEL [CHEM] Stat Lab 01/25/17 02:35 Received Dextrose 5%-0.9% NaCl Inj [D5 Ns] 1,000 ml Med 01/25/17 02:46 Discontinued .ROUTE As Directed Dextrose 5%-0.9% NaCl Inj [D5 Ns] 1,000 ml Med 01/25/17 02:45 Active IV 100 mls/hr EKG [EKG] Stat Ther 01/25/17 02:49 Ordered Result Diagrams: 01/26/17 05:45 01/26/17 05:45 - EKG 1 Time of EKG reading by physician:: 04:29 EKG Read and Signed by:: Ranjit Romero EKG Interpretation (*Must complete 3 of following elements*): Normal Rate: 52 Rhythm: sinus bradycardia [place]: normal QRS: Q Waves present ME Interval: normal ST Wave: normal Departure - Departure Time of Disposition Decision: 05:30 DIAGNOSIS: Hypothermia, Hypoglycemia Disposition: ADMITTED INPATIENT 09 Certified Medical Emergency: Emergent Condition: Stable - Critical Care Note This patient required my direct personal management.: No This chart was documented by the indicated scribe, (Theresa Brady) and accurately reflects the services I performed and decisions made by me, Ranjit Romero MD, as attested by the provider's signature.
== END 2017-01-26 13:20 | disposition home health service (06) ==
LOC: SUPCPDRO → P.ED 02:28 → P.MEDSURG 05:46
PROVIDERS: ATTEND Internal Medicine

== ENCOUNTER 2019-06-25 08:56 | Inpatient (IN) ==
[2019-06-25] MEDS ORDERED: NS 1,000 ML IV ONE (09:49)
[2019-06-25 10:44] LABS: BASO# 0.02 X1000 (0.0-0.2); BASO% 0.2 % (0.0-0.8); EOS# 0.18 X1000 (0.0-0.7); EOS% 1.6 % (0.0-10.0); HEMATOCRIT 30.9 % (37.0-47.0); HEMOGLOBIN 9.2 g/dL (12.0-16.0); IMM GRAN# 0.05 X1000 (0.0-0.04); IMM GRAN% 0.5 % (0.0-0.5); LYMPH# 2.19 X1000 (1.2-3.4); LYMPH% 19.9 % (20.5-51.1); MCH 29.7 PG (27-31); MCHC 29.8 g/dL (33-37); MCV 99.7 FL (81-99); MONO# 1.43 X1000 (0.11-0.59); MPV 10.1 FL (7.4-10.4); NEUT# 7.16 X1000 (1.4-6.5); NEUT% 64.8 % (42.2-75.2); PLT 192 X1000 (130-400); RDW 15.5 % (11.5-14.5); WBC 11.03 X1000 (4.8-10.8)
--- NOTE | 2019-06-25 10:56 | Diag Imaging Result Doc PS360 ---
EXAM: CHEST-1 VIEW HISTORY: cough TECHNIQUE: Chest single view COMPARISON: 05/26/2018 FINDINGS: The lungs are well expanded. The heart is not enlarged. The vessels are not distended. There are no infiltrates. No effusion identified. There are surgical clips in the left axilla. Old injury to the left humerus. IMPRESSION: No pneumonia. Electronically signed by Behzad Barajas 06/25/2019 10:53 AM
[2019-06-25 11:06] LABS: ALBUMIN 3.5 g/dL (3.5-5.0); CALCIUM 8.5 mg/dL (8.8-10.2); CREATININE 3.1 mg/dL (0.5-0.9); POTASSIUM 5.5 mmol/L (3.5-5.1); TOTAL BILIRUBIN 0.2 mg/dL (0.20-1.00); TOTAL PROTEIN 6.9 g/dL (6.3-8.3)
[2019-06-25 11:26] LABS: INR 1.03
[2019-06-25 11:27] LABS: PTT 47.8 Seconds (22.3-41.8)
[2019-06-25 11:37] LABS: CK INDEX 0.9 (0.0-2.5); CK-MB 1.58 ng/mL (0.0-5.0)
[2019-06-25] MEDS ORDERED: ROCEPHIN IV ONE (12:53)
--- NOTE | 2019-06-25 12:59 | PROVIDER DOCUMENTATION ---
This chart was entered by Jo Santillan Scribe, acting as scribe for Alaina Barrera MD. HPI-General Adult - General Chief Complaint: General Adult Stated Complaint: LOW B/P Time Seen by Provider: 06/25/19 09:43 Source: patient, family () Allergies/Adverse Reactions: Patient Allergies Allergy/AdvReac Type Severity Reaction Status Date / Time codeine Allergy ITCHING Verified 06/25/19 09:30 Latex, Natural Rubber Allergy Unknown Verified 06/25/19 09:30 morphine Allergy ANAPHYLAXIS Verified 06/25/19 09:30 aspirin AdvReac Unknown Verified 06/25/19 09:30 Home Medications: Home Medication List Medication Instructions Recorded Confirmed Last Taken Type Carvedilol 6.25 mg PO BID 11/03/14 06/25/19 06/21/15 09:00 History Gabapentin [Neurontin] 600 mg PO TID 01/09/15 06/25/19 06/21/15 09:00 History Amlodipine [Norvasc] 10 mg PO DAILY 01/25/17 06/25/19 Unknown History Chlorthalidone 25 mg PO DAILY 01/25/17 06/25/19 Unknown History Insulin Glargine [Lantus] 10 unit SUBQ QAM 07/11/17 06/25/19 Unknown History Eluxadoline [Viberzi] 75 mg PO BID 06/25/19 06/25/19 Unknown History Ergocalciferol (Vitamin D2) 1 cap PO Q7D 06/25/19 06/25/19 Unknown History [Vitamin D] Hydralazine [Apresoline] 25 mg PO BID 06/25/19 06/25/19 Unknown History Iron Fum,Ps/Folic/Bcomp,C No.9 1 cap PO DAILY 06/25/19 06/25/19 Unknown History [Folivane-Plus Capsule] Iron,Carbonyl [Iron] 65 mg PO DAILY 06/25/19 06/25/19 Unknown History Lisinopril 20 mg PO DAILY 06/25/19 06/25/19 Unknown History Ondansetron [Zofran] 8 mg PO TID PRN 06/25/19 06/25/19 Unknown History Sucralfate [Carafate] 1 tab PO 4XDAY 06/25/19 06/25/19 Unknown History - History of Present Illness -Gen Adult Nature of Presenting Problems: Patient is a 78 year old female who presents with weakness, cough and confusion. states symptoms started yesterday. Reports symptoms have improved. Denies fever, shortness of breath and pain. Location of Pain/Injury: reports: none Quality of Pain: reports: none Severity: reports: mild Onset/Duration: reports: 24 hours ago Timing: reports: improving Context/Activities at Onset: reports: light activity Associated Symptoms: reports: cough, weakness, other (confusion) Similar Symptoms Previously?: Yes Recently seen or treated by another doctor?: No Review of Systems - Adult - REVIEW OF SYSTEMS - ADULT ROS:: ROS per family () Constitutional: reports: no symptoms reported. denies: chills, fever, fatique Eyes: reports: no symptoms reported Ears, Nose, Mouth & Throat: reports: no symptoms reported Cardiovascular: reports: no symptoms reported Respiratory: reports: see HPI, cough. denies: shortness of breath, wheezing Gastrointestinal: reports: no symptoms reported Genitourinary: reports: urinary retention. denies: dysuria, hematuria Musculoskeletal: reports: see HPI, muscle weakness. denies: back pain, neck pain Integumentary: reports: no symptoms reported Neurological: reports: no symptoms reported. denies: dizziness/vertigo, headache/migraines, numbness, syncope Psychiatric: reports: no symptoms reported Endocrine: reports: no symptoms reported Hematologic/Lymphatic: reports: no symptoms reported Allergic/Immunologic: reports: no symptoms reported All Other Systems: Reviewed and Negative Past History - Adult - PAST MEDICAL HISTORY-ADULT Review of Records: reports: Old Records Reviewed, Social history reviewed & non- contributory. Major Childhood Illnesses: reports: denies history Cardiovascular: reports: HTN Respiratory: reports: denies history Gastrointestinal: reports: denies history Obstetrical/Gynecological: reports: other (breast cancer) Genitourinary: reports: kidney disease (decreased function of right) Musculoskeletal: reports: denies history Neurological: reports: Seizures/Epilepsy Endocrine/Immune: reports: Diabetes Other Conditions: reports: denies history - PRIOR SURGERIES/PROCEDURES Surgical/Procedure History: reports: appendectomy, hysterectomy - IMMUNIZATION STATUS Childhood Immunizations: See Nurse Assessment Flu Vaccine: See Nurse Assessment - FAMILY HISTORY Family History: reviewed, not pertinent - SOCIAL HISTORY Smoking: cigarettes, less than 1 pack/day Provider spent 3-5 mins advising pt. on dangers of tobacco.: Discussed manners to quit use, and f/u contacts for add'l counseling. Substance Use: denies Living Situation: family Physical Exam-General - PHYSICAL EXAM-ADULT Initial Vital Signs Reviewed: Yes - CONSTITUTIONAL General Appearance: alert, no apparent distress. negative: lethargic - HEAD, EARS, NOSE, MOUTH & THROAT HENMT: normocephalic/atraumatic, moist mucous membranes. negative: angioedema - RESPIRATORY Respiratory: chest non-tender, lungs clear, normal breath sounds. negative: crackles, rales - CARDIOVASCULAR Cardiovascular: normal peripheral pulses, regular rate, rhythm, systolic murmur. negative: tachycardia - GASTROINTESTINAL (ABDOMEN) Abdominal Exam: normal bowel sounds, non tender, soft. negative: guarding, rebound - MUSCULOSKELETAL Extremity: non-tender, normal inspection. negative: deformity, erythema, swelling - SKIN Integumentary: normal color, normal turgor, warm/dry. negative: cyanosis, jaundice, rash - NEUROLOGIC Neurologic: grossly normal. negative: aphasia, facial droop - PSYCHIATRIC Psych/Mental Status: normal mood/affect, oriented x 3. negative: anxious Progress - PLAN OF CARE/RESULTS Progress/Plan/Lab Results: Vital Signs - 8 hr 06/25/19 08:57 Temperature 99.3 F Pulse Rate 72 Respiratory Rate 18 Blood Pressure 163/75 O2 Sat by Pulse Oximetry 96 Laboratory Results - last 24 hr 06/25/19 09:06 POC Glucose 139 H Orders Category Date Time Status FSBS [Finger Stick Blood Sugar (ED)] DIRECTED Care 06/25/19 09:03 Active Result Diagrams: 06/25/19 10:30 06/25/19 10:30 - XRAY 1 XRAY Study: Chest Impression: See EMR Report ( EXAM: CHEST-1 VIEW HISTORY: cough TECHNIQUE: Chest single view COMPARISON: 05/26/2018 FINDINGS: The lungs are well expanded. The heart is not enlarged. The vessels are not distended. There are no infiltrates. No effusion identified. There are surgical clips in the left axilla. Old injury to the left humerus. IMPRESSION: No pneumonia. Electronically signed by Behzad Barajas 06/25/2019 10:53 AM 06/25/19 1057 Interpreting Physician: Behzad Barajas MD Dictated Date/Time: 06/25/19 1053 cc: Alaina Barrera MD; Xavier Curtis MD) - CONSULTS/PCP/HOSPITALIST Notification #1 *Consult/PCP/Hospitalist*: Dr. Camejo Time Discussed: 12:57 Reason/Comments: Dr. Barrera consulted with Dr. Camejo about patient. Consult Disposition: Will see in ED, Admit Departure - Departure Date of Disposition Decision: 06/25/19 Time of Disposition Decision: 12:57 DIAGNOSIS: Renal failure (ARF), acute on chronic, Dehydration, Weakness Disposition: ADMITTED INPATIENT 09 Certified Medical Emergency: Emergent Condition: Stable Referrals and Follow-Ups: Xavier Curtis MD [Primary Care Provider] - - Critical Care Note This patient required my direct & personal management of CC.: No Attestation - Physician/ RUBÉN Attestation The physician spent face to face time with patient:: Yes Advanced Practice Provider documentation review:: Supervising physician onsite and consulted in the evaluation and care of this patient. The physician did have a face to face encounter with the patient. This chart was documented by the indicated scribe, (Jo Santillan Scribe) and accurately reflects the services I performed and decisions made by me, Alaina Barrera MD, as attested by the provider's signature.
[2019-06-25] MEDS ORDERED: NS 50 ML IV ONE (13:03)
[2019-06-25 13:04] LABS: BILIRUBIN URINE NEGATIVE (NEGATIVE); BLOOD URINE NEGATIVE (NEGATIVE); CLARITY SL. CLOUDY (CLEAR); COLOR YELLOW; GLUCOSE URINE NEGATIVE (NEGATIVE); KETONE URINE NEGATIVE (NEGATIVE); LEUKOCYTES URINE NEGATIVE (NEGATIVE); NITRITE URINE NEGATIVE (NEGATIVE); SP GRAVITY URINE 1.015; UROBILINOGEN URINE NORMAL
[2019-06-25 13:07] LABS: URINE BACTERIA 3+ /HFP; URINE CAST NONE SEEN /LPF; URINE CRYSTAL NONE SEEN /HPF; URINE EPITHELIAL CELLS <10 /HPF (<10); URINE RBC <10 /HPF (<10); URINE SOURCE CATH; URINE WBC <10 /HPF (<10); URINE YEAST NONE SEEN /HPF
[2019-06-25] MEDS ORDERED: ZOFRAN ODT PO PRN (13:37)
[2019-06-25] MEDS ORDERED: NS 1,000 ML IV SCH (13:45)
[2019-06-25] MEDS ORDERED: NEURONTIN PO SCH (14:00)
[2019-06-25 15:38] LABS: BLOOD TYPE ARTERIAL; SAMPLE BLOOD
[2019-06-25 15:39] LABS: HCO3-(ACT) 19.3 mmoll (20.0-26.0); METHB 1.1 % (0.0-1.5); O2(CT) 17.1 mL/dL (15.0-23.0); O2HB 92.7 % (95.0-99.0); PO2(98.6) 83 mmHg (60-100); SAO2 96.2 % (95.0-100.0); THB 13.1 g/dL (11.5-17.4)
[2019-06-25 15:49] LABS: MODALITY CANNULA; PCO2(98.6) 68 mmHg (35-45); pH(98.6) 7.14 (7.35-7.45)
[2019-06-25 15:50] LABS: ALLEN TEST YES
[2019-06-25] MEDS ORDERED: DUONEB (A & A) INH SCH (16:00)
[2019-06-25] MEDS ORDERED: HUMALOG (PARKWAY) SUBQ SCH (16:00)
--- NOTE | 2019-06-25 16:11 | HISTORY AND PHYSICAL ---
PRIMARY CARE PROVIDER: Xavier Curtis MD. CHIEF COMPLAINT: Confusion, decreased appetite, decreased urine output, burning with urination, low blood sugars, and congested cough with lethargy as well. HISTORY OF PRESENT ILLNESS: Ms. Virginia Leong is a 78-year-old female with a medical history of hypertension, breast cancer, CKD stage 3, diabetes mellitus type 2, and possibly even COPD as she is a 1 pack per day smoker since the age of 21. She presents with 1 day complaints that started around 11 o'clock yesterday morning of confusion, no appetite, decrease in urination, lower blood sugars that are subjective, and being very lethargic and sleepy. According to the daughter who is at the bedside she has also had a little bit of a rattle with her cough and she does have congestion with coarse breath sounds, requiring 2 L of oxygen. We will get an ABG just of evaluate any risk of CO2 retention as she is still a little bit lethargic and confused as well, but maintaining an O2 saturation for now. It looks like she may have some dehydration with a little bit of acute kidney injury on top of CKD stage 3. Her creatinine is 3.1. Her baseline tends to be anywhere from 1.6 to 3.2. Her BUN is up a little bit. So, she will give some hydration. She will have a Gar[place] catheter. White count is up a little bit. She has 3+ bacteria but no real white blood cells in her urine. So, we will monitor her closely. Given the fact that she has complained of burning with urination, we will follow up on her urine culture as well. There is no pneumonia on her x-ray. PAST MEDICAL HISTORY: 1. Hypertension. 2. Breast cancer. 3. CKD stage 3. 4. Diabetes mellitus type 2. 5. Likely COPD, not officially diagnosed. 6. GERD. 7. Iron deficiency anemia. SURGICAL HISTORY: 1. Appendectomy. 2. Hysterectomy. SOCIAL HISTORY: One pack per day smoker since her 20s. Daughter at the bedside said no drinking, no drugs. Lives at home with her . FAMILY HISTORY: Mother's side of the family had diabetes. Father's side of the family had heart disease. ALLERGIES: Codeine, latex, natural rubber, morphine, aspirin. HOME MEDICATIONS: 1. Hydralazine 25 mg p.o. twice daily. 2. Carafate 1 tablet p.o. 4 times daily. 3. Coreg 6.25 mg p.o. twice daily. 4. Chlorthalidone 25 mg p.o. daily. 5. Multivitamin 1 capsule p.o. daily. 6. Iron 65 mg p.o. daily. 7. Lantus 10 units subcutaneous daily. 8. Lisinopril 20 mg p.o. daily. 9. Neurontin 600 mg p.o. t.i.d. 10. Norvasc 10 mg p.o. daily. 11. Viberzi 75 mg p.o. twice daily. 12. Vitamin D2 58629 units p.o. every 7 days. 13. Zofran 8 mg p.o. t.i.d. p.r.n. REVIEW OF SYSTEMS: Difficult to obtain given her confusion. She did state that she was having some burning with her urination and that she felt weak and drowsy more than usual. PHYSICAL EXAMINATION: VITAL SIGNS: Temperature 98.2 degrees, heart rate 76, respiratory rate 13, blood pressure 169/65, O2 saturation 99% on 2 L nasal cannula. GENERAL: Virginia Leong is a 78-year-old female. She is in no acute distress. She is just confused. HEENT: Atraumatic, normocephalic. Pupils equal, round, reactive to light. Extraocular movements intact. Mucous membranes. NECK: Trachea midline. CARDIOVASCULAR: S1, S2. Regular rate and rhythm. No rubs, gallops, murmurs. No lower extremity edema. There are +2 dorsalis and radial pulses. Negative JVD or carotid bruits. PULMONARY: Coarse throughout. Some mild expiratory wheezes noted. She is tolerating 2 L nasal cannula. No accessory muscle use or work of breathing noted. GI: Soft, nontender, nondistended. Positive bowel sounds x4. EXTREMITIES: Decreased range of motion. Strength 5/5. NEUROLOGIC: Confused. Answered some questions appropriately. Followed commands. Sensory is intact. SKIN: Warm, dry, intact. LABORATORY DATA: White blood cells 11,000, hemoglobin 9, hematocrit 30, platelet count 192,000. INR is 1.03, PTT is 47.8. Sodium 140, potassium 5.5, BUN 47, creatinine 3.1, glucose 168, calcium 8.5, bilirubin 0.20, AST 17, ALT 10. CK 179. Troponin less than 0.01. Albumin 3.5, lactate 0.5. Urinalysis slightly cloudy, 3+ protein, 3+ bacteria, otherwise negative. IMAGING: Chest x-ray: Negative, no pneumonia. ASSESSMENT AND PLAN: 1. Metabolic encephalopathy, a little bit of acute kidney injury, possibly maybe even an infection. We are following up on that. Hopefully will improve with IV fluid hydration. 2. Acute kidney injury on chronic kidney disease stage 3. IV fluid hydration. Were going to hold her RUKHSANA inhibitor but she will be continued on her Norvasc and Coreg. 3. Mild hypoxemic respiratory failure requiring 2 L of oxygen, likely with a history of chronic obstructive pulmonary disease. We are going to get an ABG, check for any type of CO2 retention as she is lethargic and confused. She will have albuterol Atrovent nebulizers q.6 hours. 4. Diabetes mellitus type 2. Will do patterned blood glucoses, sliding scale insulin. 5. History of hypertension. She is on Coreg and Norvasc. 6. Deep venous thrombosis prophylaxis. SCDs. 7. Gastroesophageal reflux disease. Continue on Carafate for now. Dictated by SIVAN Phillips for Jean Camejo MD cc: SIVAN Phillips MD
[2019-06-25] MEDS ORDERED: CARAFATE PO SCH (17:00)
--- NOTE | 2019-06-25 19:02 | PROGRESS NOTE ---
DATE: 06/25/2019 ADDENDUM: Patient seen and examined by myself. Full note dictated and discussed with nurse practitioner. Patient presented to the hospital with decreased urine output, decreased oral intake. She has been coughing and congested. She has been more lethargic. Initially in the ER, she was awake and able to converse. However, after coming to the floor, she started having increased work of breathing and decreased sensorium. ABG was obtained which demonstrated a pH 7.1. We therefore transfer her to the ICU and place her on BiPAP. The patient was reexamined again in the ICU. She is more alert, although when she falls asleep her tidal volume does continue to drop down to 200, while she is awake her tidal volume is 4 and 500. We are going to continue her in the ICU. Continue BiPAP. Hopefully, her hypercapnic respiratory failure will improve. She does note to have an acute kidney injury with a creatinine 3. Place her on fluids, oxygen, and will follow. cc: Jean Camejo MD
[2019-06-25] MEDS ORDERED: PATIENT'S OWN MED PO SCH (21:00)
[2019-06-25] MEDS ORDERED: COREG PO SCH (21:00)
[2019-06-25] MEDS ORDERED: APRESOLINE PO SCH (21:00)
[2019-06-26 06:39] LABS: BE -6.2 mmoll (-3.0-3.0); BLOOD TYPE ARTERIAL; HCO3-(ACT) 20.1 mmoll (20.0-26.0); METHB 1.6 % (0.0-1.5); O2(CT) 13.1 mL/dL (15.0-23.0); O2HB 94.7 % (95.0-99.0); PO2(98.6) 102 mmHg (60-100); SAMPLE BLOOD; SAO2 98.1 % (95.0-100.0); THB 9.7 g/dL (11.5-17.4)
[2019-06-26 06:43] LABS: MODALITY BI PAP; PCO2(98.6) 66 mmHg (35-45); pH(98.6) 7.15 (7.35-7.45)
[2019-06-26 06:44] LABS: ALLEN TEST NO
[2019-06-26 06:53] LABS: HEMATOCRIT 30.2 % (37.0-47.0); HEMOGLOBIN 8.9 g/dL (12.0-16.0); MCH 29.7 PG (27-31); MCHC 29.5 g/dL (33-37); MCV 100.7 FL (81-99); MPV 10.5 FL (7.4-10.4); RDW 15.6 % (11.5-14.5); WBC 10.6 X1000 (4.8-10.8)
[2019-06-26 07:12] LABS: SODIUM 141 mmol/L (136-145)
[2019-06-26 07:13] LABS: AGAP 13; ALBUMIN 3.4 g/dL (3.5-5.0); ALKALINE PHOSPHATASE 101 U/L (32-104); BUN 44 mg/dL (8-22); CALCIUM 9.4 mg/dL (8.8-10.2); CHLORIDE 107 mmol/L (98-107); COSMO 297; CREATININE 2.6 mg/dL (0.5-0.9); ESTIMATED GFR 18; GLUCOSE 174 mg/dL (70-104); GOT 18 U/L (10-30); GPT 9 U/L (10-36); MAGNESIUM 1.9 mg/dL (1.5-2.7); TCO2 21 mmol/L (25-35); TOTAL BILIRUBIN < 0.15 mg/dL (0.20-1.00); TOTAL PROTEIN 6.9 g/dL (6.3-8.3)
[2019-06-26 07:14] LABS: POTASSIUM 6.2 mmol/L (3.5-5.1)
[2019-06-26] MEDS ORDERED: ALBUTEROL 0.5% INH CONC FOR HYPERKALEMIA INH ONE (07:46)
[2019-06-26] MEDS ORDERED: SODIUM BICARBONATE 8.4% IV PUSH ONE (07:46)
[2019-06-26] MEDS ORDERED: CALCIUM GLUCONATE 1 GM in NS 50 ML IV ONE (07:46)
[2019-06-26] MEDS ORDERED: HUMULIN R (PARKWAY) IV ONE (07:46)
[2019-06-26] MEDS ORDERED: D50W SYRINGE IV ONE (07:46)
[2019-06-26] MEDS ORDERED: NS 1,000 ML IV SCH (08:00)
[2019-06-26] MEDS ORDERED: APRESOLINE IV PRN ×2 (08:02→16:11)
[2019-06-26] MEDS ORDERED: DUONEB (A & A) INH PRN ×2 (08:06→16:13)
[2019-06-26] MEDS ORDERED: LEVAQUIN 500 MG/D5W 500 MG/100 ML IVPB IV SCH (08:15)
[2019-06-26] MEDS ORDERED: SODIUM CHLORIDE 0.9% INJ SCH (08:15)
[2019-06-26] MEDS ORDERED: PROTONIX IV SCH (08:15)
--- NOTE | 2019-06-26 08:50 | Diag Imaging Result Doc PS360 ---
EXAM: CT THORAX W/O CONTRAST HISTORY: acute hypercarbic resp failure TECHNIQUE: CT chest without contrast COMPARISON: None. FINDINGS: trace bilateral pleural fluid and pericardial fluid. The heart is borderline mildly prominent. There is pulmonary edema. Moderate atherosclerosis. No aortic aneurysm. There are small mediastinal nodes. There are mild emphysematous changes. Tiny patchy infiltrate in the left upper lobe. No bronchiectasis. There has been a left-sided mastectomy. No lung nodules identified. Limited images through the upper abdomen reveal an overly distended gallbladder. IMPRESSION: 1.Emphysema 2.Pulmonary edema with tiny pleural effusions and pericardial fluid 3.Left mastectomy This exam was performed using automated exposure control, adjustment of mA or kV according to patient size, and/or use of iterative reconstruction technique. Electronically signed by Behzad Barajas 06/26/2019 8:48 AM
[2019-06-26] MEDS: SOLU-MEDROL IV SCH ×3 (08:51→16:32)
[2019-06-26] MEDS ORDERED: PATIENT'S OWN MED PO SCH (09:00)
[2019-06-26] MEDS ORDERED: APRESOLINE PO SCH (09:00)
[2019-06-26] MEDS ORDERED: COREG PO SCH (09:00)
[2019-06-26] MEDS ORDERED: ICAR-C PO SCH (09:00)
[2019-06-26] MEDS ORDERED: LANTUS INSULIN SUBQ SCH ×2 (09:00)
[2019-06-26] MEDS ORDERED: THERA M PLUS PO SCH (09:00)
[2019-06-26] MEDS ORDERED: HYGROTON PO SCH ×2 (09:00)
[2019-06-26] MEDS ORDERED: NORVASC PO SCH ×2 (09:00)
[2019-06-26] MEDS ORDERED: NEURONTIN PO SCH (09:00)
--- NOTE | 2019-06-26 09:12 | EKG Report ---
Test Performed on : 06/26/2019 08:51:56 AM Test Reason : hyperkalemia Blood Pressure : / mmHG Vent. Rate : 095 BPM Atrial Rate : 095 BPM P-R Int : 164 ms QRS Dur : 062 ms QT Int : 366 ms P-R-T Axes : 081 057 069 degrees QTc Int : 459 ms Normal sinus rhythm. with sinus arrhythmia. Normal ECG When compared with ECG of 10-JUL-2017 16:09, Significant changes have occurred Unconfirmed Result
--- NOTE | 2019-06-26 09:18 | PROGRESS NOTE ---
DATE: 06/26/2019 SUBJECTIVE: Upon my examination, this patient this morning was still confused just nods her head to my questions. According to nursing staff, she has been confused all night. Because of problem with the computer apparently, she has not been on any blood pressure medication or any fluids. She has been breathing really shallow requiring BiPAP. Her labs show basically severe respiratory acidosis. OBJECTIVE: Vital Signs: Temperature 98.6, heart rate 79, respiratory 19, blood pressure 166/87, O2 saturation 100% on BiPAP FiO2 30%. General: This is a chronically ill- appearing, 78-year-old female lying in bed. Tachypneic in mild respiratory distress. HEENT: Head is normocephalic and atraumatic. Pupils equal, round, reactive to light and accommodation. Neck: No JVD noted. No carotid bruits. No lymphadenopathy. No thyromegaly. Cardiovascular: S1, S2 heard. No murmurs, gallops, or rubs. Regular rate and rhythm. Respiratory: Decreased breath sounds globally with coarse breath sounds noted mostly in both pulmonary bases. There is also wheezing all over as well. The patient is not using any accessory muscles or having work of breathing. Abdomen: Soft, a little bit distended, but nontender to palpation. Bowel sounds present. No organomegaly. No signs of peritoneal irritation. Extremities: Decrease range of motion. There is no clubbing, cyanosis, or edema noted. Peripheral pulses present in both legs. Neurologic: The patient continues to be confused, answer questions by nodding her head. Follows basic commands. She moves 4 extremities spontaneously. LABORATORY DATA: White cell count 10.6, hemoglobin 8.9, hematocrit 30.2 platelets 161,000 with ABG that shows pH of 0.15 with pCO2 66, bicarbonate 20, that sample was taken on BiPAP FiO2 30%. The BMP shows potassium 6.2, with creatinine 2.6, glucose 174, albumin is 3.4. ASSESSMENT: 1. Acute hypercapnic, hypoxemic respiratory failure. 2. Chronic obstructive pulmonary disease exacerbation. 3. Uncontrolled hypertension. 4. Acute on chronic kidney disease stage 3. 5. Iron-deficiency anemia. PLAN: The patient was admitted to the hospital because of confusion, decrease appetite, decrease in urine output. During her stay here she has become more short of breath. She is breathing shallow and basically her labs shows persistent acute hypercapnic respiratory failure with a component of metabolic acidosis. The patient is requiring BiPAP at this time, but she looks very tachypneic. Her mental status it is not okay. I think she may need to be intubated down the road so that is why I prefer to send this patient to [facility] and we will consult Pulmonary. We will provide DuoNeb every 4 hours scheduled and every 2 hours p.r.n. There has been a mild elevation of white cell count, I am not quite sure if this patient has a pneumonia, I will start Levaquin on this patient while we wait for the results of the CT of the chest that I ordered to get a better visualization of the lung anatomy. We will also start on IV steroids as well and Protonix. For acute on chronic kidney disease, patient's creatinine is getting better. We will get Nephrology consultation. We will continue with IV fluids. We have held her RUKHSANA inhibitor, but we have continued with Norvasc and Coreg. For diabetes mellitus type 2, we will start sliding scale insulin and also home medication Lantus, the patient is on diabetic diet. For hypertension as we mentioned before, we will continue with Coreg and Norvasc and we will place her on hydralazine p.r.n. DISPOSITION: As we mentioned before, we are going to transfer this patient to [facility] ICU. I was verbally informed in the CT of chest it showed very distended gallbladder. Will order an abdominal US that will be done once patient is at [facility]. cc: Tr Chen MD MTDYarelis
[2019-06-26] MEDS: LOKELMA POWDER PACKET PO SCH ×2 (09:42→14:26)
[2019-06-26 09:50] LABS: UR CREAT RANDOM 47.6 mg/dL (11-20); UR PROT RANDOM 191.2 mg/dL
[2019-06-26 10:00] LABS: BLOOD TYPE ARTERIAL; SAMPLE BLOOD
[2019-06-26 10:01] LABS: BE 0.4 mmoll (-3.0-3.0); HCO3-(ACT) 25.2 mmoll (20.0-26.0); METHB 1.3 % (0.0-1.5); O2HB 95.4 % (95.0-99.0); PO2(98.6) 139 mmHg (60-100); SAO2 98.4 % (95.0-100.0); SRATE 24 BPM; THB 9.5 g/dL (11.5-17.4); pH(98.6) 7.31 (7.35-7.45)
[2019-06-26 10:04] LABS: ALLEN TEST YES; MODALITY BI PAP; PCO2(98.6) 54 mmHg (35-45)
[2019-06-26] MEDS ORDERED: ZYVOX 600 MG/D5W 600 MG/300 ML IVPB IV SCH (10:30)
[2019-06-26] MEDS ORDERED: LASIX IV SCH (10:30)
[2019-06-26] MEDS: ZOSYN 2.25 GM in NS 50 ML IV SCH ×4 (10:42→23:59)
[2019-06-26] MEDS ORDERED: HUMALOG (PARKWAY) SUBQ SCH (11:00)
--- NOTE | 2019-06-26 12:39 | PROVIDER PROGRESS NOTE ---
Progress Note Pulmonary Additional note: Case seen and evaluated. Full dictation to follow. See CPOE Evaluation time>30 minutes.
[2019-06-26] MEDS: DUONEB (A & A) INH SCH ×4 (13:30→23:08)
--- NOTE | 2019-06-26 15:16 | Diag Imaging Result Doc PS360 ---
EXAM: US ABDOMEN-COMPLETE 06/26/2019 HISTORY: enlarged gallbladder TECHNIQUE: Abdominal ultrasound COMMENT: The visualized portions of the pancreatic head and body are normal in appearance. The aorta and inferior vena cava are normal as seen. The right kidney is without evidence of hydronephrosis or mass. The liver is slightly hyperechoic suggesting fatty change. There is antegrade flow in the portal vein. The gallbladder is distended. There are no apparent stones. There is no evidence of para cholecystic fluid. The common bile duct is dilated to over 11 mm. The left kidney is without evidence of hydronephrosis or mass. The spleen is not enlarged. Compared to the previous study of 05/26/2018 the biliary dilatation and dilatation of the gallbladder were not present previously. There is no sonographic Che sign. IMPRESSION: The possibility of a stone or other obstruction in the distal common bile duct is suspected. Electronically signed by Michael Menjivar 06/26/2019 3:13 PM
[2019-06-26] MEDS: HUMALOG SUBQ SCH ×2 (17:00→21:06)
[2019-06-26 17:29] LABS: ALLEN TEST NO; BE -1.4 mmoll (-3.0-3.0); BLOOD TYPE ARTERIAL; HCO3-(ACT) 23.8 mmoll (20.0-26.0); METHB 1.6 % (0.0-1.5); O2(CT) 12.8 mL/dL (15.0-23.0); O2HB 95.4 % (95.0-99.0); PO2(98.6) 103 mmHg (60-100); SAMPLE BLOOD; SAO2 97.7 % (95.0-100.0); THB 9.4 g/dL (11.5-17.4); pH(98.6) 7.23 (7.35-7.45)
[2019-06-26 17:31] LABS: MODALITY BI PAP; PCO2(98.6) 64 mmHg (35-45); SRATE 24 BPM
--- NOTE | 2019-06-26 18:55 | ECHO REPORT ---
ORDER DATE: 06/26/2019 INDICATION: Shortness of breath. M-MODE MEASUREMENTS: Left ventricle end diastole: 3.0. Left ventricle end systole: 2.2. Posterior wall: 1.1. Interventricular septum: 1.1. Left atrium: 4.2. Aortic diameter: 2.7. SUMMARY OF 2-DIMENSIONAL IMAGIN. Left ventricular function appears to be hyperdynamic with an ejection fraction on the order of 70% to 75%. 2. The aortic valve is normal. Color flow mapping unremarkable. 3. The mitral valve looks normal. Color flow mapping unremarkable. 4. The pulmonic valve is unremarkable. 5. The tricuspid valve is also unremarkable. Color flow mapping indicates a mild degree of regurgitation. Pulmonary pressure is estimated to be in the neighborhood of 47 to 52 mmHg. There is a suggestion of a subaortic gradient of about 61 mmHg. That could related to mid- chamber hypertrophy. There is no definite indication of systolic anterior motion on the mitral valve, although the study is really difficult to sort out. I believe it is just a hyperdynamic ventricle with moderate left ventricular hypertrophy. 6. Tissue Doppler of septal and lateral mitral annulus averages 7.5 cm. 7. Pulsed wave Doppler of mitral inflow shows reversal of the E/A ratio. The ratio is 0.8. 8. Pulmonary venous flow appears to be normal. There is no diastolic dysfunction. 9. The left atrium is moderately dilated. SUMMARY: This study shows: 1. Hyperdynamic left ventricle with probably moderate concentric left ventricular hypertrophy and a small cavity chamber. There is a question of an intracardiac gradient of 61 mmHg. I do not see evidence of systolic anterior motion of the mitral valve to suspect classic HOCM. 2. Unremarkable aortic valve. 3. Unremarkable mitral valve. 4. Moderately enlarged left atrium. 5. Mild degree of tricuspid regurgitation with pulmonary pressure 47 to 52 mmHg. Clinical correlation recommended. cc: MD Tr Andrade MD [facility]
[2019-06-26] MEDS ORDERED: MUCOMYST 20% INH SCH (19:30)
[2019-06-26] MEDS: MUCOMYST 20% INH SCH (19:44)
[2019-06-26 20:07] LABS: ALLEN TEST YES; BE -0.6 mmoll (-3.0-3.0); BLOOD TYPE ARTERIAL; HCO3-(ACT) 24.5 mmoll (20.0-26.0); METHB 1.1 % (0.0-1.5); O2HB 96.3 % (95.0-99.0); PO2(98.6) 144 mmHg (60-100); SAMPLE BLOOD; SAO2 98.2 % (95.0-100.0); THB 9.4 g/dL (11.5-17.4); pH(98.6) 7.29 (7.35-7.45)
[2019-06-26 20:11] LABS: MODALITY BI PAP; PCO2(98.6) 55 mmHg (35-45)
--- NOTE | 2019-06-26 20:15 | CONSULTATION ---
DATE OF CONSULTATION: 06/26/2019 REASON FOR ADMISSION: Altered mental status, decreased appetite with decreased urinary output x2 to 3 days with burning on urination, low blood sugar, lethargy. REASON FOR CONSULT: Acute kidney injury on chronic kidney disease stage 3B. CONSULTING PHYSICIAN: Tr Chen MD HISTORY OF PRESENT ILLNESS: Ms. Atwood is a 78-year-old female who is known to our outpatient services for chronic kidney disease stage 3B, stage 4. The patient's baseline creatinine a year ago was 1.8, last seen in our office in May 2019. Creatinine was 2.2 to 2.6. The patient is currently on BiPAP. Her sats are 92% to 93%. Her family is at her bedside. She is slightly confused at this time. Family states that 2 to 3 days prior to her admission to [facility] she had started with a rattle and a cough. She had congestion with coarse breath sounds that had a basic nonproductive cough. She was taken to [facility]. She was evident for CO2 retention. She was placed on O2 at 2 L nasal cannula and then was placed on BiPAP. It was noted that the patient appeared volume depleted with a creatinine of 3.1, noted baseline previously of 1.6 to 3.2 approximately 1 year ago. They have started intravenous fluids. Creatinine is now at her baseline of 2.6 from 3.1. She has made adequate urine. She has been transferred to [facility] ICU for monitoring. She does have 3+ bacteria. No real white blood cells had been noted in her urine. Culture and sensitivity are pending. The patient had a chest x-ray that indicated no pneumonia. Positive enlarged vessels though no infiltrates, no pleural effusions. Urine cultures and sputum cultures are currently pending. At this time, she denies chest pain positive for increased work of breathing. No chills. No fever documented since her admission. Blood pressure is slightly elevated, complains of nausea, decreased appetite in the context of chlorthalidone and her lisinopril which she has been taking in spite of not eating and drinking. No hemoptysis, hematochezia or hematuria. PAST MEDICAL HISTORY: Hypertension, breast cancer, chronic kidney disease stage 3B4, baseline creatinine is 2.2 to 2.6 in 2019, diabetes mellitus type 2, questionable COPD, GERD, iron deficiency anemia, anemia of chronic disease. PAST SURGICAL HISTORY: She has had an appendectomy and hysterectomy. SOCIAL HISTORY: She has a history of current day smoker since the age of 21. Denies drinking or alcohol. Lives with her at home. Her daughter is at her bedside. FAMILY HISTORY: Mother's side of the family with diabetes. Father's side of the family with heart disease. None with renal disease. ALLERGIES: Listed as codeine, latex, natural rubber, morphine and aspirin. HOME MEDICATIONS: Listed as hydralazine, Carafate, Coreg, chlorthalidone, multivitamin, iron, Lantus, lisinopril, Neurontin, Norvasc, Viberzi, vitamin D2, and Zofran. REVIEW OF SYSTEMS: X2 with pertinent positives listed above in the HPI. MOST RECENT VITAL SIGNS: Temperature 98.6 degrees, blood pressure 166/87, heart rate 79, respirations are 19. She has had 250 in. She has had 1900 out of her Garay in the last 24 hours at the time she was seen. LABORATORY DATA: This a.m., sodium 141, potassium of 6.2 with a repeat of 5.4 after medical treatment, chloride 107, CO2 21, BUN 44, creatinine 2.6, glucose is 174, her anion gap is 13, calcium 9.4, albumin 3.4, white count 10.6, hemoglobin 8.9, hematocrit 30.2 with a platelet count of 161,000. ABGs: pH 7.15, CO2 66, pO2 102 with a bicarb of 20.1, plasma lactate of 0.3 on 30% BiPAP. PHYSICAL EXAMINATION: General: This is a 78-year-old elderly male who is resting quietly in bed. She is currently on BiPAP. She remains chronically ill. Skin: Warm and dry. HEENT: Normocephalic, atraumatic. Conjunctivae are pale. Mucous membranes are dry. Neck: Supple. Trachea midline. Unable to determine JVD due to her BiPAP straps. Cardiovascular: She is regular rate and rhythm on the monitor. Pulmonary: Coarse breath sounds throughout. Mild inspiratory wheezing. Remains on BiPAP support. Equal excursion. Abdomen: Large, round, soft, nontender. Positive bowel sounds. Genitourinary: Garay catheter is in place. She has approximately 200 mL to her urometer in the bag. Extremities: The patient has trace pretibial edema. No clubbing or cyanosis. Neurological: She is awake but confused. She is able to follow commands. ASSESSMENT AND PLAN: 1. Acute kidney injury on chronic kidney disease stage 3B4. Patient's baseline creatinine last seen in our office was 2.2 and 2.6 consecutively. On current labs, her creatinine has responded nicely to intravenous fluids. Creatinine is now at 2.6 with a BUN of 44 with adequate urine output documented. We have requested a renal ultrasound. We will check urine electrolytes and continue with IV fluid hydration. 2. Metabolic encephalopathy. This could be multifactorial secondary to urinary tract infection. Urine cultures, blood cultures and sputum cultures are currently pending. She continues on a renal dosed antibiotic of Rocephin and Zosyn. 3. Electrolytes and acid-base balance. These are acceptable. Potassium has responded nicely. It is now down to 5.4. 4. Anemia. This is low but stable. I would like to thank you for allowing us to follow with this patient. Dictated by SIVAN Cancino for Yolette Fritz MD cc: SIVAN Cancino MD [facility]
--- NOTE | 2019-06-26 20:33 | CONSULTATION ---
DATE OF CONSULTATION: 06/26/2019 REQUESTING PROVIDER: Dr. Tr Linn. REASON FOR CONSULTATION: Acute hypercapnic respiratory failure. HISTORY OF PRESENT ILLNESS: This is a 78-year-old female with a medical history of ongoing tobacco abuse, suspected chronic hypercapnic respiratory failure, hypertension, breast cancer, chronic kidney disease, diabetes mellitus type 2, gastroesophageal reflux disease, and iron deficiency anemia. She presented to the [place] ER yesterday morning with weakness, cough, and confusion. Initial workup in the ER revealed metabolic encephalopathy, acute on chronic kidney disease, mild hypoxemic respiratory failure, and acute hypercapnic respiratory failure. Per Dr. Linn's progress note, during her stay she became more short of breath. She initially required nasal cannula and since yesterday afternoon she was put on BiPAP and her pCO2 is basically stable in these 2 days, so she was transferred to the ICU in our facility this morning. The patient currently is lying in bed with no acute distress noted. She is on a BiPAP mask. The patient's daughter is at the bedside. The patient's daughter reported the patient apparently had no complaint on Tuesday. She did take a long nap on Tuesday and later when the patient was awoken up from that nap, she became confused. On Tuesday she was still confused, so they decided to send her to the ER. PAST MEDICAL AND SURGICAL HISTORY: 1. Ongoing tobacco abuse. 2. Suspected chronic hypercapnic respiratory failure. The patient's last admission was from 07/10/2017 to 07/13/2017 with altered mental status. She was put on a BiPAP at that time for 2 nights. Her last pCO2 at that time was 55. 3. Hypertension. 4. Breast cancer status post left mastectomy. 5. Chronic kidney disease stage III. 6. Diabetes mellitus type 2. 7. Gastroesophageal reflux disease. 8. Iron deficiency anemia. 9. Status post appendectomy. 10. Status post hysterectomy. SOCIAL HISTORY: The patient lives at home with her family. She smokes a pack per day since age of 19, as the patient's daughter reported. She has no history of alcohol or illicit drug use. FAMILY HISTORY: Positive for diabetes and heart disease. ALLERGIES: Codeine, latex, natural rubber, morphine, and aspirin. REVIEW OF SYSTEMS: Difficult to be obtained as the patient is on a BiPAP mask and confused. PHYSICAL EXAMINATION: Vital Signs: Temperature 97.6 degrees, blood pressure 146/64, pulse 96, respiratory rate 24, oxygen saturation 100% on BiPAP with FiO2 of 30% and pressure 20/6. General: The patient is lying in bed with a BiPAP mask on. She has no acute distress. She appears confused at this time. The patient's daughter is at the bedside. HEENT: Atraumatic, normocephalic. Trachea midline. Mucosa pink and slightly dry. Respiratory: Even and unlabored. Symmetrical excursion. Auscultation revealed coarse breathing sounds bilaterally. Cardiovascular: Regular rate and rhythm. Gastrointestinal: Soft. Nondistended. Normoactive bowel sounds in all 4 quadrants. Extremities: No pedal edema. No cyanosis. No clubbing. Dorsalis pedis 1+ bilaterally. Neurologic: The patient is awake, but confused. She is able to follow some simple commands. She has a generalized weakness. LABORATORY DATA: White blood cells 10.60, hemoglobin 8.9, hematocrit 30.2, platelet 161,000. Sodium 141, potassium 6.2, chloride 107, carbon dioxide 21, BUN 44, creatinine 2.6, glucose 174. ABG: pH 7.15, pCO2 of 66, pO2 of 102, HC03 of 20.1, base excess -6.2, and oxyhemoglobin 94.7. IMAGING DATA: CT thorax without contrast revealed trace bilateral pleural fluid and pericardial fluid, pulmonary edema, moderate atherosclerosis, small mediastinal nodes, mild emphysematous change, tiny patchy infiltrates in the left upper lobe, and a left-sided mastectomy. ASSESSMENT: This is a 78-year-old female with a medical history of ongoing tobacco abuse, suspected chronic hypercapnic respiratory failure, hypertension, breast cancer, chronic kidney disease, diabetes mellitus type 2, gastroesophageal reflux disease, and iron deficiency anemia. She has been admitted to the ICU in our facility with acute hypercapnic hypoxic respiratory failure, chronic obstructive pulmonary disease exacerbation, acute on chronic kidney disease. 1. Acute hypoxic respiratory failure. 2. Acute on suspected chronic hypercapnic respiratory failure. 3. Mild emphysematous chronic obstructive pulmonary disease with acute exacerbation. 4. Acute on chronic kidney disease stage III. 5. Ongoing tobacco abuse. PLAN: 1. Continue supplemental oxygen. Continue BiPAP as needed. 2. Continue antibiotics, steroid, and bronchodilators. 3. Follow up with ABG, CBC, pro BMP, urine culture, blood culture, and chest x- ray. 4. Continue GI and DVT prophylaxis. 5. Daily smoking cessation education when appropriate. 6. Further recommendations pending hospital course. Thank you for the courtesy of this consult. Dictated by SIVAN Pablo for Deb Mac MD cc: SIVAN Pablo MD [facility]
[2019-06-26] MEDS ORDERED: HUMALOG SUBQ SCH ×2 (21:00)
[2019-06-26] MEDS: NS 1,000 ML IV SCH (21:03)
[2019-06-26] MEDS: COREG PO SCH (21:04)
[2019-06-26] MEDS: LASIX IV SCH (21:04)
[2019-06-26] MEDS: APRESOLINE PO SCH (21:05)
[2019-06-26] MEDS: PATIENT'S OWN MED PO SCH (21:32)
[2019-06-26] MEDS ORDERED: VASELINE TOP PRN (23:14)
[2019-06-26] MEDS: ZYVOX 600 MG/D5W 600 MG/300 ML IVPB IV SCH (23:59)
[2019-06-27] MEDS: SOLU-MEDROL IV SCH ×3 (01:49→15:59)
[2019-06-27] MEDS: DUONEB (A & A) INH SCH ×5 (03:22→19:12)
[2019-06-27 04:30] LABS: ALLEN TEST YES; BE -2.2 mmoll (-3.0-3.0); BLOOD TYPE ARTERIAL; HCO3-(ACT) 23.2 mmoll (20.0-26.0); METHB 0.7 % (0.0-1.5); O2(CT) 12.5 mL/dL (15.0-23.0); O2HB 96.9 % (95.0-99.0); PO2(98.6) 148 mmHg (60-100); SAMPLE BLOOD; SAO2 98.4 % (95.0-100.0); THB 8.9 g/dL (11.5-17.4); pH(98.6) 7.29 (7.35-7.45)
[2019-06-27 04:31] LABS: MODALITY BI PAP
[2019-06-27] MEDS: ZOSYN 2.25 GM in NS 50 ML IV SCH ×4 (04:31→23:22)
[2019-06-27 04:32] LABS: PCO2(98.6) 51 mmHg (35-45)
[2019-06-27 06:20] LABS: EOS# 0.03 X1000 (0.0-0.7); EOS% 0.5 % (0.0-10.0); HEMATOCRIT 28.7 % (37.0-47.0); HEMOGLOBIN 9.1 g/dL (12.0-16.0); IMM GRAN# 0.06 X1000 (0.0-0.04); IMM GRAN% 0.9 % (0.0-0.5); LYMPH# 0.34 X1000 (1.2-3.4); LYMPH% 5.4 % (20.5-51.1); MCH 31.8 PG (27-31); MCHC 31.7 g/dL (33-37); MCV 100.3 FL (81-99); MONO# 0.06 X1000 (0.11-0.59); MONO% 0.9 % (1.7-9.3); MPV 11.6 FL (7.4-10.4); NEUT# 5.85 X1000 (1.4-6.5); NEUT% 92.3 % (42.2-75.2); PLT 142 X1000 (130-400); RBC 2.86 XMIL (4.2-5.4); RDW 15.5 % (11.5-14.5); WBC 6.34 X1000 (4.8-10.8)
[2019-06-27 06:35] LABS: CALCIUM 9.7 mg/dL (8.8-10.2); CREATININE 2.5 mg/dL (0.5-0.9)
[2019-06-27 06:36] LABS: PHOSPHORUS 5.3 mg/dL (2.7-4.5)
[2019-06-27 06:37] LABS: POTASSIUM 6.5 mmol/L (3.5-5.1)
[2019-06-27] MEDS: HUMALOG SUBQ SCH ×4 (06:39→21:30)
[2019-06-27] MEDS ORDERED: LOKELMA POWDER PACKET PO SCH (07:00)
--- NOTE | 2019-06-27 07:15 | Diag Imaging Result Doc PS360 ---
EXAM: CHEST-PORTABLE 06/27/2019 HISTORY: dyspnea TECHNIQUE: AP portable at 0536 COMMENT: There is no evidence of acute cardiac or pulmonary disease. Compared to 06/25/2019 there has been no significant change. IMPRESSION: No acute disease. Electronically signed by Michael Menjivar 06/27/2019 7:13 AM
[2019-06-27] MEDS: MUCOMYST 20% INH SCH ×2 (07:49→19:12)
[2019-06-27] MEDS ORDERED: HYGROTON PO SCH (09:00)
[2019-06-27] MEDS: PATIENT'S OWN MED PO SCH ×2 (09:12→23:16)
[2019-06-27] MEDS: SODIUM CHLORIDE 0.9% INJ SCH (09:42)
[2019-06-27] MEDS: PROTONIX IV SCH (09:42)
[2019-06-27] MEDS: NORVASC PO SCH (09:43)
[2019-06-27] MEDS: COREG PO SCH ×2 (09:43→21:30)
[2019-06-27] MEDS: APRESOLINE PO SCH ×2 (09:43→21:30)
[2019-06-27] MEDS: LASIX IV SCH (09:43)
[2019-06-27] MEDS ORDERED: ALBUTEROL NEB INH ONE (09:48)
[2019-06-27] MEDS: LANTUS INSULIN SUBQ SCH (10:12)
[2019-06-27] MEDS: LOKELMA POWDER PACKET PO SCH ×3 (10:19→23:22)
[2019-06-27] MEDS: NS 1,000 ML IV SCH (10:20)
--- NOTE | 2019-06-27 10:25 | EKG Report ---
Test Performed on : 06/27/2019 09:46:01 AM Test Reason : hyperkalemia Blood Pressure : / mmHG Vent. Rate : 075 BPM Atrial Rate : 075 BPM P-R Int : 162 ms QRS Dur : 072 ms QT Int : 390 ms P-R-T Axes : 070 021 053 degrees QTc Int : 435 ms Normal sinus rhythm. Normal ECG When compared with ECG of 26-JUN-2019 08:51, (Unconfirmed) No significant change was found Confirmed by Floyd LUQUE, Sundeep Weldon ([id number]) on 06/28/2019 8:23:28 PM
[2019-06-27] MEDS ORDERED: HUMULIN R IV ONE (10:36)
[2019-06-27] MEDS ORDERED: SODIUM BICARBONATE 8.4% IV ONE ×2 (10:36→10:43)
[2019-06-27] MEDS: ZYVOX 600 MG/D5W 600 MG/300 ML IVPB IV SCH (11:12)
[2019-06-27] MEDS ORDERED: ALBUTEROL 0.5% INH CONC FOR HYPERKALEMIA INH ONE (11:37)
[2019-06-27] MEDS: SODIUM BICARBONATE 8.4% 100 MEQ in STERILE WATER INJ. 500 ML IV SCH ×2 (12:21→17:39)
--- NOTE | 2019-06-27 13:57 | NEPHROLOGY PROGRESS NOTE ---
DATE: 06/28/2019 SUBJECTIVE: Ms. Leong is resting quietly in bed. When seen at this time, she remains on 30% BiPAP. She is more awake and alert. OBJECTIVE: Vital Signs: Temperature 98.1 degrees, blood pressure 152/64, heart rate 73, respirations 18. She is on 30% BiPAP with saturation 96%. She has had 2465 in, 1370 out to Garay catheter. LABORATORIES: Sodium 138, potassium 6.5, chloride 102, CO2 19, BUN 48, creatinine 2.5, glucose is 224. Anion gap is 17, calcium 9.7, phosphorus 5.3, albumin 3. White count 6.34, hemoglobin 9.1, hematocrit 28.7, with a platelet count of 142,000. ABGs pH 7.29, CO2 51, PO2 148, bicarb 23.2 on 30% BiPAP. Blood cultures are negative. PHYSICAL EXAMINATION: General: Ms Leong is a 78-year-old female who is resting quietly in bed. Head of the bed is elevated. She is more awake and alert today. Skin: Warm and dry. HEENT: Normocephalic, atraumatic. Conjunctivae pale. She has THAIS. Mucous membranes are dry. Neck: Supple. Trachea midline. No evidence of JVD with her BiPAP straps in place. Cardiovascular: She is regular rate and rhythm on the monitor. No appreciable murmur or gallop. Lungs: Clear to auscultation, though diminished. Remains on BiPAP support. Coarse breath sounds to bilateral bases. Abdomen: Large, round, nontender. Positive bowel sounds. Genitourinary: Garay catheter is in place. Not inspected. Adequate urine out. Extremities: She continues with trace pretibial edema. No clubbing or cyanosis. Neurological: She is awake, but confused to most recent events. ASSESSMENT AND PLAN: 1. Acute kidney injury on chronic kidney disease stage IIIB. The patient's baseline creatinine is 2.2 to 2.6. Her creatinine has improved now down to 2.5 with a BUN of 48. Adequate urine output has been documented. No indications for intervention. 2. Metabolic encephalopathy. This continues though she feels better. 3. Electrolytes. Potassium of 6.5 today. She is currently on Lokelma. Her initial dose has been given. We will continue to monitor on a daily basis. 4. Electrolytes and anemia. These are acceptable. I would like to thank you for allowing us to follow with this patient. Dictated by SIVAN Cancino for Yolette Fritz MD cc: SIVAN Cancino
[2019-06-27 16:48] LABS: CALCIUM 9.2 mg/dL (8.8-10.2); CREATININE 2.5 mg/dL (0.5-0.9); POTASSIUM 4.4 mmol/L (3.5-5.1)
[2019-06-28] MEDS: DUONEB (A & A) INH SCH ×7 (00:05→23:44)
[2019-06-28] MEDS: ZYVOX 600 MG/D5W 600 MG/300 ML IVPB IV SCH ×2 (00:37→11:03)
[2019-06-28] MEDS: SOLU-MEDROL IV SCH ×3 (00:37→16:45)
[2019-06-28] MEDS: SODIUM BICARBONATE 8.4% 100 MEQ in STERILE WATER INJ. 500 ML IV SCH ×4 (00:37→10:29)
[2019-06-28 04:51] LABS: ALLEN TEST YES; BE 10.7 mmoll (-3.0-3.0); BLOOD TYPE ARTERIAL; HCO3-(ACT) 33.3 mmoll (20.0-26.0); METHB 0.4 % (0.0-1.5); O2(CT) 13.9 mL/dL (15.0-23.0); O2HB 96.3 % (95.0-99.0); PCO2(98.6) 49 mmHg (35-45); PO2(98.6) 89 mmHg (60-100); SAMPLE BLOOD; SAO2 97.5 % (95.0-100.0); THB 10.2 g/dL (11.5-17.4); pH(98.6) 7.47 (7.35-7.45)
[2019-06-28 06:12] LABS: MODALITY BI PAP
[2019-06-28] MEDS: ZOSYN 2.25 GM in NS 50 ML IV SCH ×4 (06:35→23:55)
[2019-06-28 06:53] LABS: HEMATOCRIT 27.4 % (37.0-47.0); HEMOGLOBIN 9.1 g/dL (12.0-16.0); IMM GRAN# 0.02 X1000 (0.0-0.04); IMM GRAN% 0.2 % (0.0-0.5); LYMPH# 0.34 X1000 (1.2-3.4); LYMPH% 3.4 % (20.5-51.1); MCH 30.6 PG (27-31); MCHC 33.2 g/dL (33-37); MCV 92.3 FL (81-99); MPV 11.3 FL (7.4-10.4); NEUT# 9.41 X1000 (1.4-6.5); NEUT% 94.4 % (42.2-75.2); PLT 157 X1000 (130-400); RBC 2.97 XMIL (4.2-5.4); RDW 14.6 % (11.5-14.5); WBC 9.97 X1000 (4.8-10.8)
--- NOTE | 2019-06-28 06:53 | Diag Imaging Result Doc PS360 ---
CHEST-PORTABLE - 06/28/2019 INDICATION: dyspnea COMPARISON: 06/27/2019 FINDINGS: There is some mild hazy left lower lobe atelectasis or infiltrate with partial opacification of the left hemidiaphragm. No other infiltrates. Heart size and pulmonary vascularity is grossly normal. IMPRESSION: Mild hazy nonspecific atelectasis or infiltrate in the left lower lobe. Electronically signed by Gerald Arcos 06/28/2019 6:51 AM
[2019-06-28] MEDS: HUMALOG SUBQ SCH ×4 (07:03→21:22)
[2019-06-28 07:21] LABS: ALBUMIN 3.2 g/dL (3.5-5.0); CALCIUM 9.4 mg/dL (8.8-10.2); CREATININE 2.4 mg/dL (0.5-0.9); PHOSPHORUS 3.9 mg/dL (2.7-4.5); POTASSIUM 3.5 mmol/L (3.5-5.1)
[2019-06-28] MEDS: MUCOMYST 20% INH SCH ×2 (08:00→19:15)
[2019-06-28] MEDS: NORVASC PO SCH (08:14)
[2019-06-28] MEDS: SODIUM CHLORIDE 0.9% INJ SCH (08:14)
[2019-06-28] MEDS: PROTONIX IV SCH (08:14)
[2019-06-28] MEDS: COREG PO SCH ×2 (08:15→21:01)
[2019-06-28] MEDS: APRESOLINE PO SCH ×2 (08:15→21:01)
[2019-06-28] MEDS: PATIENT'S OWN MED PO SCH ×2 (08:25→21:23)
[2019-06-28] MEDS: LANTUS INSULIN SUBQ SCH (10:08)
[2019-06-28] MEDS ORDERED: LOKELMA POWDER PACKET PO SCH (11:00)
[2019-06-28 13:02] LABS: CREATININE 2.4 mg/dL (0.7-1.2); UR CREATININE 26.7 mg/dL (11-20); UR CREATININE TOTAL 574.1 mg/24 (600-1600)
--- NOTE | 2019-06-28 13:14 | NEPHROLOGY PROGRESS NOTE ---
DATE: 06/28/2019 DATE AND TIME SEEN: 06/28/2019 at 07:35. SUBJECTIVE: Ms Leong is resting quietly in bed. She is currently on 3 L nasal cannula. She is looking for her glasses so she can watch TV. She does not want to reiterate the last 24 to 48 hours secondary to her acute illness. Upon questioning, she is alert to her name and place. OBJECTIVE: Vital Signs: Temperature 98.1 degrees, blood pressure 176/80, heart rate is 81, respirations 18. She is on 2 L nasal cannula, last recorded saturation 95%. She has had 3490 in, she has had 1615 out to Garay catheter. LABORATORY DATA: Sodium is 140, potassium 3.5, chloride 93, CO2 29, BUN 50, creatinine 2.4, glucose is 229, anion gap of 18, calcium 9.4, phosphorus 3.9, albumin 3.2. White count 9.97, hemoglobin 9.1, hematocrit is 27.5, with a platelet count of 157,000. ABGs early this a.m., pH 7.47, CO2 49, PO2 89, bicarb 33.3 on 30% BiPAP. PHYSICAL EXAMINATION: General: This is a 78-year-old female resting quietly in bed. Head of the bed is elevated. She is awake and alert. Skin: Warm and dry. HEENT: Normocephalic, atraumatic. Conjunctivae pale pink. She has THAIS. Mucous membranes are dry. Neck: Supple. Trachea midline. No evidence of JVD. Cardiovascular: She is regular rate and rhythm today. No appreciable murmur or gallop. Lungs: Clear to auscultation bilaterally. Equal excursion. She is on O2. Abdomen: Large, round, soft, nontender. Positive bowel sounds. Genitourinary: Garay catheter is in place with adequate urine out. Not inspected. Extremities: Have trace pretibial edema. No clubbing or cyanosis. Neurological: She is alert and oriented to person and to place today. ASSESSMENT AND PLAN: 1. Chronic kidney disease stage 3B/4. Patient's acute kidney injury has resolved with IV fluid resuscitation. She remains at her historical baseline of a creatinine of 2.4 today. BUN is slightly elevated. Adequate urine output is documented. No indications for intervention. 2. Electrolytes and acid-base balance. Patient's potassium has dropped to 3.5. We will change her Lokelma dosing to daily instead of 3 times a day and to be held if her potassium is less than 4.5 during her hospital stay. Acid-base balance is stable with a closing anion gap. 3. Anemia. This is low but acceptable. 4. Metabolic encephalopathy. This is improving during her hospital stay. 5. Urinary tract infection with pneumonia with renal failure. The patient remains on renal dosed antibiotics, followed by Dr. Francois and the primary care. I would like to thank you for allowing us to follow with this patient. Dictated by SIVAN Cancino for Yolette Fritz MD cc: SIVAN Cancino
[2019-06-29] MEDS: SOLU-MEDROL IV SCH ×3 (00:06→17:28)
[2019-06-29] MEDS: ZYVOX 600 MG/D5W 600 MG/300 ML IVPB IV SCH ×2 (00:08→11:50)
[2019-06-29] MEDS: DUONEB (A & A) INH SCH ×4 (03:45→15:47)
[2019-06-29] MEDS ORDERED: G.I. COCKTAIL PO ONE (04:16)
[2019-06-29 04:45] LABS: ALLEN TEST YES; BE 17.4 mmoll (-3.0-3.0); BLOOD TYPE ARTERIAL; HCO3-(ACT) 38.4 mmoll (20.0-26.0); METHB 0.6 % (0.0-1.5); O2(CT) 12.1 mL/dL (15.0-23.0); O2HB 91.4 % (95.0-99.0); PCO2(98.6) 49 mmHg (35-45); PO2(98.6) 56 mmHg (60-100); SAMPLE BLOOD; SAO2 93.8 % (95.0-100.0); THB 9.4 g/dL (11.5-17.4); pH(98.6) 7.54 (7.35-7.45)
[2019-06-29 04:46] LABS: MODALITY ROOM AIR
[2019-06-29] MEDS: ZOSYN 2.25 GM in NS 50 ML IV SCH ×3 (05:09→17:04)
--- NOTE | 2019-06-29 05:09 | EKG Report ---
Test Performed on : 06/29/2019 05:02:24 AM Test Reason : chest pain Blood Pressure : / mmHG Vent. Rate : 072 BPM Atrial Rate : 072 BPM P-R Int : 150 ms QRS Dur : 072 ms QT Int : 416 ms P-R-T Axes : 074 018 038 degrees QTc Int : 455 ms Normal sinus rhythm. Nonspecific T wave abnormality (mild lateral flattening) Borderline ECG Confirmed by Floyd LUQUE, Sundeep Weldon ([id number]) on 06/29/2019 1:53:26 PM
[2019-06-29] MEDS: HUMALOG SUBQ SCH ×3 (06:07→17:05)
[2019-06-29] MEDS: MUCOMYST 20% INH SCH (07:37)
[2019-06-29 08:15] LABS: EOS# 0.02 X1000 (0.0-0.7); EOS% 0.3 % (0.0-10.0); HEMOGLOBIN 9.7 g/dL (12.0-16.0); IMM GRAN# 0.03 X1000 (0.0-0.04); IMM GRAN% 0.4 % (0.0-0.5); LYMPH# 0.36 X1000 (1.2-3.4); LYMPH% 4.5 % (20.5-51.1); MCH 30.5 PG (27-31); MCHC 33.4 g/dL (33-37); MCV 91.2 FL (81-99); MONO# 0.27 X1000 (0.11-0.59); MONO% 3.4 % (1.7-9.3); MPV 10.7 FL (7.4-10.4); NEUT# 7.32 X1000 (1.4-6.5); NEUT% 91.4 % (42.2-75.2); PLT 158 X1000 (130-400); RBC 3.18 XMIL (4.2-5.4); RDW 14.7 % (11.5-14.5)
[2019-06-29] MEDS: NORVASC PO SCH (08:22)
[2019-06-29] MEDS: APRESOLINE PO SCH (08:23)
[2019-06-29] MEDS: COREG PO SCH (08:23)
[2019-06-29] MEDS: PROTONIX IV SCH (08:27)
[2019-06-29 08:32] LABS: LARGE PLATELETS 1+; LYMPHS 12 % (21-51); MONO 2 % (1-9); SEGS 86 % (42-75)
[2019-06-29 08:44] LABS: CALCIUM 8.9 mg/dL (8.8-10.2); CREATININE 2.3 mg/dL (0.5-0.9); PHOSPHORUS 3.6 mg/dL (2.7-4.5); POTASSIUM 2.9 mmol/L (3.5-5.1)
[2019-06-29] MEDS: LANTUS INSULIN SUBQ SCH (08:48)
[2019-06-29] MEDS: PATIENT'S OWN MED PO SCH (08:49)
[2019-06-29] MEDS ORDERED: VITAMIN D PO SCH (09:00)
--- NOTE | 2019-06-29 14:24 | NEPHROLOGY PROGRESS NOTE ---
DATE: 06/29/2019 SUBJECTIVE: The patient is sitting up in bed eating breakfast. No complaints. OBJECTIVE: Vital Signs: Temperature 97.6 degrees, pulse 76, respiratory rate 18, blood pressure 164/60. Intake 2.1 L, output 1.7 L. PHYSICAL EXAMINATION: General: This is an elderly female, sitting up in bed. Awake and alert but in no acute distress. HEENT: Normocephalic, atraumatic. THAIS, Oral mucosa is moist. Neck: Supple without JVD. Cardiovascular: Regular rate and rhythm without murmur. Pulmonary: Clear bilaterally. Abdomen: Soft, with positive bowel sounds. Round. : Garay catheter. Clear yellow urine. Extremities: No edema, clubbing. Cyanosis. Integumentary: Warm and dry. No rash or lesion. Neurologic: Grossly nonfocal. LABORATORY DATA: WBC of 8, hemoglobin 9.7. Sodium 139, potassium 2.9. CO2 31, creatinine 2.3, albumin 3.0. ASSESSMENT AND PLAN: 1. Chronic kidney disease stage IIIB to IV. Renal function remains stable. 2. Electrolytes, acid-base balance. Her potassium continues to drop we will hold her Lokelma at this time and continue to follow her labs closely. 3. Urinary tract infection and pneumonia, on appropriately dosed antibiotics. Dictated by SIVAN Drew for Trevor Strickland MD cc: Trevor Strickland MD [facility]
[2019-06-29 16:12] VITALS: BP 165/55
--- NOTE | 2019-06-29 22:09 | DISCHARGE SUMMARY ---
ADMISSION DATE: 06/25/2019 DISCHARGE DATE: 06/29/2019 DISPOSITION: Home. FOLLOW-UP: 1. Dr. Mac. 2. Dr. Strickland. 3. Dr. Curtis. CONSULTATIONS DURING THIS ADMISSION: 1. Pulmonary Medicine was consulted. The patient was seen by Dr. Mac. 2. Nephrology was consulted. The patient was seen by Dr. Strickland. INVASIVE PROCEDURES DONE DURING THIS ADMISSION: None. IMAGING STUDIES OF SIGNIFICANCE: 1. Initial chest x-ray showed no pneumonia. 2. A chest CT scan showed emphysema, pulmonary edema with pleural effusions and a left mastectomy. 3. 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 4. A repeat chest x-ray showed no acute disease. ADMISSION DIAGNOSES: 1. Metabolic encephalopathy. 2. Acute on chronic kidney disease. 3. Mild hypoxemic failure. 4. Diabetes mellitus. DIAGNOSES AT THE TIME OF DISCHARGE: 1. Altered mental status secondary to global encephalopathy, presumably metabolic/infectious/toxic. No focalization. The patient's mentation improved during the hospital course. 2. Acute on chronic kidney disease stage IIIB to IV with Nephritic-range proteinuria. 3. Acute hypercarbic respiratory failure, improved. 4. Diabetes mellitus. 5. Ongoing tobacco use and abuse. 6. Suspected undiagnosed chronic obstructive pulmonary disease. 7. Breast cancer, status post left mastectomy. DISCHARGE MEDICATIONS: 1. Carvedilol or 6.25 b.i.d. 2. Gabapentin 200 mg 3 times per day. 3. Amlodipine 10 mg p.o. daily. 4. Insulin glargine 10 units subcutaneously every morning. 5. Hydralazine 25 mg b.i.d. 6. Carafate. 7. Amoxicillin 1 tablet b.i.d. 8. Prednisone 20 mg p.o. daily. 9. Diflucan 100 mg p.o. daily. PRESENTING COMPLAINTS: Confused. Some burning urination. HISTORY OF PRESENTING COMPLAINT: Ms. Leong is a 78-year-old lady with multiple comorbidities including suspected COPD, hypertension, breast cancer, CKD, and tobacco use. She came to the Emergency Department because of altered mental status, decreased urine output, and generalized fatigue. The patient was evaluated and was found to have a creatinine of 3.1. She was hypoxemic, and was subsequently admitted and transferred from [place] to [facility] for further medical care. HOSPITAL COURSE: Mr. Leong was admitted to the medical floor. Was evaluated by multiple subspecialties including Pulmonary Medicine and Nephrology. Her creatinine continued to be trending down from 3.1 to 2.3 over the course of the hospital stay, which seems to be her baseline. She was also treated for possible infection including possible pneumonia and UTI; however, her urine culture came back negative as well as blood cultures. Antibiotics were transitioned to p.o. Her mentation remarkably improved during the hospital course. We think that Ms. Leong had been on a high dose of gabapentin, which in the face of renal failure could potentially make her mentation worse, so when her mentation improved, the Neurontin was started at a lower dose. This morning Ms. Leong refers to feel a lot better. VITAL SIGNS: Blood pressure is 165/55, pulse of 74, respirations 18, temperature 98.3 degrees. ASSESSMENT/PLAN: 1. We think she is in stable condition to be discharged to continue with outpatient care. She is going to follow up with Dr. Strickland as well as with Dr. Mac and with Dr. Xavier Curtis. 2. All the discharge instructions have been discussed with Ms. Leong. We stressed the importance of tobacco cessation. TIME SPENT FOR DISCHARGE: 40 minutes. cc: Braydon Mullen MD MTDYarelis
== END 2019-06-29 17:29 | disposition home or self-care (01) | DRG 189 ==
LOC: P.ED 08:56 → P.MEDSURG 08:57 → SUATTDRO 08:57 → P.ICU 16:48 → ICU 06-26 12:08 → 1N 06-28 15:20
PROVIDERS: ATTEND Internal Medicine

== ENCOUNTER 2019-11-22 11:02 | Observation (INO) ==
[2019-11-22 11:44] LABS: BASO# 0.01 X1000 (0.0-0.2); BASO% 0.1 % (0.0-0.8); EOS% 2.7 % (0.0-10.0); HEMATOCRIT 34.4 % (37.0-47.0); HEMOGLOBIN 10.7 g/dL (12.0-16.0); IMM GRAN# 0.01 X1000 (0.0-0.04); IMM GRAN% 0.1 % (0.0-0.5); LYMPH# 1.54 X1000 (1.2-3.4); MCH 29.6 PG (27-31); MCHC 31.1 g/dL (33-37); MCV 95.3 FL (81-99); MONO# 0.65 X1000 (0.11-0.59); MONO% 8.9 % (1.7-9.3); MPV 10.7 FL (7.4-10.4); NEUT# 4.93 X1000 (1.4-6.5); NEUT% 67.2 % (42.2-75.2); PLT 165 X1000 (130-400); RBC 3.61 XMIL (4.2-5.4); RDW 17.3 % (11.5-14.5); WBC 7.34 X1000 (4.8-10.8)
--- NOTE | 2019-11-22 11:52 | PROVIDER DOCUMENTATION ---
HPI-General Adult - General Chief Complaint: Abnormal Lab[s] Stated Complaint: ABNORMAL LABS PER DOCTOR Time Seen by Provider: 11/22/19 11:06 Source: patient Allergies/Adverse Reactions: Patient Allergies Allergy/AdvReac Type Severity Reaction Status Date / Time codeine Allergy ITCHING Verified 11/22/19 12:44 Latex, Natural Rubber Allergy Unknown Verified 11/22/19 12:44 morphine Allergy ANAPHYLAXIS Verified 11/22/19 12:44 aspirin AdvReac Unknown Verified 11/22/19 12:44 Home Medications: Home Medication List Medication Instructions Recorded Confirmed Last Taken Type Carvedilol 6.25 mg PO BID 11/03/14 11/22/19 11/21/19 History Amlodipine [Norvasc] 10 mg PO DAILY 01/25/17 11/22/19 11/21/19 History Insulin Glargine [Lantus] 10 unit SUBQ QAM 07/11/17 11/22/19 11/21/19 History Eluxadoline [Viberzi] 75 mg PO BID 06/25/19 11/22/19 11/21/19 History Ergocalciferol (Vitamin D2) 1 cap PO Q7D 06/25/19 11/22/19 11/21/19 History [Vitamin D] Hydralazine [Apresoline] 25 mg PO BID 06/25/19 11/22/19 11/21/19 History Iron Fum,Ps/Folic/Bcomp,C No.9 1 cap PO DAILY 06/25/19 11/22/19 11/21/19 History [Folivane-Plus Capsule] Iron,Carbonyl [Iron] 65 mg PO DAILY 06/25/19 11/22/19 11/21/19 History Ondansetron [Zofran] 8 mg PO TID PRN 06/25/19 11/22/19 11/21/19 History Sucralfate [Carafate] 1 tab PO 4XDAY 06/25/19 11/22/19 11/21/19 History Fluconazole [Diflucan] 100 mg PO DAILY #5 tab 06/29/19 11/22/19 11/21/19 Rx Gabapentin [Neurontin] 200 mg PO TID #0 06/29/19 11/22/19 11/21/19 Rx Prednisone 20 mg PO DAILY #5 tab 09/11/22/19 11/21/19 Rx - History of Present Illness -Gen Adult Nature of Presenting Problems: 79 yof presents on the recommendation of 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 Strickland for elevated K+. She reports some nuasea yesterday but otherwise denies all symptoms including SOB, CP, Palpitations. Location of Pain/Injury: reports: none Pain Radiation: reports: no radiation Quality of Pain: reports: none Severity: reports: mild Onset/Duration: reports: unsure ( called This AM) Timing: reports: still present Context/Activities at Onset: reports: none Modifying Factors: improves with: nothing Associated Symptoms: reports: denies symptoms Similar Symptoms Previously?: No Recently seen or treated by another doctor?: Yes (Dr Kebede for labs) Review of Systems - Adult - REVIEW OF SYSTEMS - ADULT Constitutional: reports: no symptoms reported. denies: see HPI, chills, fever, fatique, night sweats, weight gain, weight loss, other Eyes: reports: no symptoms reported. denies: see HPI, discharge, dry eyes, decreased vision, blurred vision, double vision, eye pain, redness, other Ears, Nose, Mouth & Throat: reports: no symptoms reported. denies: see HPI, ear discharge, ear pain, hearing loss, tinnitus, epistaxis, sinus problem, nose pain, loose teeth, mouth/dental pain, mouth swelling, hoarseness, throat pain, throat swelling, other Cardiovascular: reports: no symptoms reported. denies: see HPI, chest pain, edema, heart murmur, irregular heart rate, orthopnea, palpitations, poor circulation, PND, syncope, other Respiratory: reports: no symptoms reported. denies: see HPI, chronic cough, cough, dyspnea on exertion, excessive sputum production, hemoptysis, pleurisy, shortness of breath, wheezing, other Gastrointestinal: reports: nausea. denies: no symptoms reported, see HPI, abdominal pain, hematemesis, constipation, diarrhea, difficulty swallowing, frequent heartburn, poor appetite, rectal bleeding, vomiting, other Genitourinary: reports: no symptoms reported. denies: see HPI, dysuria, discharge, frequency, flank pain, frequent UTI's, hematuria, hesitency, incontinence, urinary retention, urgency, other Musculoskeletal: reports: no symptoms reported. denies: see HPI, bone pain, back pain, frequent leg cramps, joint pain, joint swelling, muscle aches, muscle weakness, neck pain, other Integumentary: reports: no symptoms reported. denies: see HPI, hives, hair loss, itching, mole changes, nail changes, rash, skin sores/ulcer, skin thickening, other Neurological: reports: no symptoms reported. denies: see HPI, ataxia, dizziness/vertigo, headache/migraines, loss of balance, numbness, paresthesia, seizure, slurred speech, syncope, tremors, other Psychiatric: reports: no symptoms reported. denies: see HPI, anxiety, anti- depressant use, alcohol/drug dependence, depression, emotional problems, insomnia, panic attacks, suicidal thoughts, other Endocrine: reports: no symptoms reported. denies: see HPI, change in skin pigment, excessive sweating, goiter, cold intolerance, heat intolerance, increased hunger, increased thirst, polyuria, other Hematologic/Lymphatic: reports: no symptoms reported. denies: see HPI, blood clots, easy bruising, low blood count, lymphedema, prolonged bleeding, swollen lymph nodes, transfusions, other Allergic/Immunologic: reports: no symptoms reported. denies: see HPI, allergic reactions, allergic rhinitis, asthma, eczema, food allergy, frequent infections, hay fever, hives, positive PPD, urticaria, other Past History - Adult - PAST MEDICAL HISTORY-ADULT Review of Records: reports: Nursing Assessment Review, Social history reviewed & non-contributory. Major Childhood Illnesses: reports: denies history Cardiovascular: reports: HTN Obstetrical/Gynecological: reports: other (breast cancer) Genitourinary: reports: kidney disease (decreased function of right) Neurological: reports: Seizures/Epilepsy Endocrine/Immune: reports: Diabetes - PRIOR SURGERIES/PROCEDURES Surgical/Procedure History: reports: appendectomy, hysterectomy - IMMUNIZATION STATUS Childhood Immunizations: See Nurse Assessment Flu Vaccine: See Nurse Assessment Physical Exam-General - PHYSICAL EXAM-ADULT Initial Vital Signs Reviewed: Yes - CONSTITUTIONAL General Appearance: alert, no apparent distress - EYES Eyes: PERRL/EOMI, pink conjunctivae - HEAD, EARS, NOSE, MOUTH & THROAT HENMT: normocephalic/atraumatic, moist mucous membranes, normal ENT inspection - NECK Neck: non-tender, full range of motion, supple - RESPIRATORY Respiratory: chest non-tender, lungs clear, normal breath sounds, no pleuratic chest pain, no respiratory distress, no accessory muscle use - CARDIOVASCULAR Cardiovascular: normal peripheral pulses, regular rate, rhythm, no edema, no gallop, no JVD, no murmur - GASTROINTESTINAL (ABDOMEN) Abdominal Exam: normal bowel sounds, non tender, soft, no organomegaly, no pulsatile mass - LYMPHATIC Lymphatic: no adenopathy - MUSCULOSKELETAL Back Exam: normal inspection, no CVA tenderness, no vertebral tenderness Extremity: normal range of motion, non-tender, normal gait Peripheral Pulses: radial (R): 2+, radial (L): 2+ - SKIN Integumentary: normal color, normal turgor, warm/dry - NEUROLOGIC Neurologic: grossly normal - PSYCHIATRIC Psych/Mental Status: normal mood/affect, oriented x 3 Progress - PLAN OF CARE/RESULTS Progress/Plan/Lab Results: Vital Signs - 8 hr 11/22/19 11:06 Temperature 98 F Pulse Rate 60 Respiratory Rate 18 Blood Pressure 152/72 O2 Sat by Pulse Oximetry 96 Laboratory Results - last 24 hr 11/22/19 11:40 WBC 7.34 RBC 3.61 L Hgb 10.7 L Hct 34.4 L MCV 95.3 MCH 29.6 MCHC 31.1 L RDW Std Deviation 17.3 H Plt Count 165 MPV 10.7 H Immature Gran % (Auto) 0.1 Neut % (Auto) 67.2 Lymph % (Auto) 21.0 Allen % (Auto) 8.9 Eos % (Auto) 2.7 Baso % (Auto) 0.1 Immature Gran # (Auto) 0.01 Neut # (Auto) 4.93 Lymph # (Auto) 1.54 Allen # (Auto) 0.65 H Eos # (Auto) 0.20 Baso # (Auto) 0.01 Orders Category Date Time Status CBC WITH ELECTRONIC DIFF [HEME] Stat Lab 11/22/19 11:40 Completed CMP [COMPREHENSIVE METABOLIC PANEL] [CHEM] Stat Lab 11/22/19 11:40 Received EKG [EKG] Stat Ther 11/22/19 11:10 Ordered Result Diagrams: 11/22/19 11:40 11/22/19 14:01 - EKG 1 Time of EKG reading by physician:: 12:30 EKG Read and Signed by:: Zurdo Ramires EKG Interpretation (*Must complete 3 of following elements*): Normal Rate: 66 Rhythm: NSR Chloe: normal QRS: other (low voltage) IL Interval: normal ST Wave: normal Prior EKG Comparison: changes noted (low voltage now) - CONSULTS/PCP/HOSPITALIST Notification #1 *Consult/PCP/Hospitalist*: Dr. Strickland Time Discussed: 13:19 Consult Disposition: F/U in office (agees with current tx, Add Lokelma 10g NOW and Q8H x 6 doses, repeat K+ in AM,Stop lisinopril, Follow up with Dr. Israel) #2 Consult: Dr. Strickland Time Discussed: 14:52 Consult Disposition: Admit Departure - Departure Date of Disposition Decision: 11/22/19 Time of Disposition Decision: 14:29 DIAGNOSIS: Hyperkalemia, Renal insufficiency Disposition: ADMITTED INPATIENT 09 Certified Medical Emergency: Emergent Condition: Stable Referrals and Follow-Ups: Xavier Curtis MD [Primary Care Provider] - - Critical Care Note This patient required my direct & personal management of CC.: No Attestation - Physician/ RUBÉN Attestation Patient care was provided by Advanced Practice Provider:: Yes Advanced Practice Provider:: Lynette Bejarano Advanced Practice Provider documentation review:: The Mid-level provider documentation, treatment plan and medical decision making was reviewed by the physician who agrees with all treatment and medical decision making by the MLP. The physician spent face to face time with patient:: No Advanced Practice Provider documentation review:: Supervising physician onsite and consulted in the evaluation and care of this patient. The physician did not have a face to face encounter with the patient.
[2019-11-22 12:03] LABS: ALBUMIN 3.8 g/dL (3.5-5.0); CALCIUM 9.2 mg/dL (8.8-10.2); CREATININE 2.4 mg/dL (0.5-0.9); POTASSIUM 6.4 mmol/L (3.5-5.1); TOTAL BILIRUBIN 0.2 mg/dL (0.20-1.00); TOTAL PROTEIN 7.3 g/dL (6.3-8.3)
[2019-11-22] MEDS ORDERED: ALBUTEROL 0.5% INH CONC FOR HYPERKALEMIA INH ONE ×2 (12:04→15:57)
[2019-11-22] MEDS ORDERED: HUMULIN R IV ONE ×2 (12:04→15:43)
[2019-11-22] MEDS ORDERED: D50W SYRINGE IV ONE ×2 (12:05→15:44)
[2019-11-22] MEDS ORDERED: HUMULIN R (PARKWAY) ONE ×2 (12:43→16:22)
--- NOTE | 2019-11-22 13:59 | EKG Report ---
Test Performed on : 11/22/2019 12:22:56 PM Test Reason : HYPERKALEMIA Blood Pressure : / mmHG Vent. Rate : 066 BPM Atrial Rate : 066 BPM P-R Int : 172 ms QRS Dur : 064 ms QT Int : 414 ms P-R-T Axes : 057 012 063 degrees QTc Int : 434 ms Normal sinus rhythm. Low voltage QRS Borderline ECG When compared with ECG of 29-JUN-2019 05:02, No significant change was found Unconfirmed Result
[2019-11-22] MEDS ORDERED: CALCIUM GLUCONATE IV PUSH ONE (15:44)
[2019-11-22] MEDS ORDERED: SODIUM BICARBONATE 8.4% IV PUSH ONE (15:44)
[2019-11-22] MEDS ORDERED: CALCIUM GLUCONATE 1 GM in NS 50 ML IV ONE ×2 (16:00→16:03)
[2019-11-22] MEDS ORDERED: LOKELMA POWDER PACKET PO SCH (17:00)
[2019-11-22 17:41] LABS: UR AMPHETAMINES QUAL NONE DETECTED (NONE DETECT); UR BARBITUATES QUAL NONE DETECTED (NONE DETECT); UR BENZODIAZEPIN QUAL NONE DETECTED (NONE DETECT); UR CANNABINOIDS QUAL NONE DETECTED (NONE DETECT); UR COCAINE QUAL NONE DETECTED (NONE DETECT); UR METHADONE QUAL NONE DETECTED (NONE DETECT); UR METHAMPHETAMINE QUAL NONE DETECTED (NONE DETECT); UR OPIATES QUAL NONE DETECTED (NONE DETECT); UR OXYCODONE QUAL NONE DETECTED (NONE DETECT); UR PCP QUAL NONE DETECTED (NONE DETECT); UR PROPOXYPHENE QUAL NONE DETECTED (NONE DETECT); UR TCA QUAL NONE DETECTED (NONE DETECT)
[2019-11-22] MEDS ORDERED: TYLENOL PO PRN (18:23)
[2019-11-22] MEDS: LOKELMA POWDER PACKET PO SCH (18:38)
[2019-11-22] MEDS: NS 1,000 ML IV SCH (19:12)
--- NOTE | 2019-11-22 20:04 | HISTORY AND PHYSICAL ---
PRIMARY CARE PROVIDER: Xavier Curtis. HOURLY ASSOCIATE: Dr. Strickland. CHIEF COMPLAINT: High potassium. HISTORY OF PRESENT ILLNESS: Ms. Leong is a 79-year-old female with a past medical history of hypertension, breast cancer, chronic kidney disease stage 3, diabetes mellitus type 2, COPD with a 1 pack per day smoker who came to the [place] ED at the recommendation of Dr. Strickland for an elevated potassium. She did report that she had some nausea yesterday and felt a little off balance. However, those symptoms have subsided and she felt fine today. Workup in the ED showed an initial potassium of 6.4. After treatment with a 10 units of regular insulin, D 50, calcium gluconate, and hyperkalemic breathing treatment and LOKELMA her potassium only came down to 6.1. She was re-treated per Dr. Strickland's recommendation. She is to have 6 total doses of LOKELMA. We will repeat her potassium at 8 p.m. and recheck again in the morning and monitor her on telemetry overnight. PAST MEDICAL HISTORY: Per HPI. PAST SURGICAL HISTORY: Appendectomy, hysterectomy. SOCIAL HISTORY: One pack per day smoker since her 20s. No alcohol or illicit drug use. She is . Lives at home with her . FAMILY HISTORY: Mother with diabetes. Father, heart disease. ALLERGIES: Codeine, latex, natural rubber, morphine and aspirin. MEDICATIONS: Home medications are being compiled. REVIEW OF SYSTEMS: Completely negative except for those mentioned in HPI. She denies any symptoms. PHYSICAL EXAMINATION: VITAL SIGNS: Temperature is 97.4 degrees, heart rate 66, respirations 20, blood pressure 154/50, O2 is 100% on 2 L nasal cannula. GENERAL: Ms. Leong is a 79-year-old female who is lying in the stretcher in no acute distress. HEENT: Atraumatic, normocephalic. PERRL. NECK: Supple. Trachea midline. CARDIOVASCULAR: S1, S2 appreciated. No murmurs, gallops, rubs noted. RESPIRATORY: Lung sounds clear bilaterally. GI: Is soft, nontender, nondistended. Positive bowel sounds 4 quads. LOWER EXTREMITIES: Negative for edema. Bilateral pedal pulses were palpable. NEUROLOGIC: No focal deficits noted. DIAGNOSTIC DATA: EKG shows normal sinus rhythm at 66 beats per minute. LABORATORY DATA: White count 7, hemoglobin and hematocrit 10 and 34, platelet count 165,000. Initial potassium 6.4. Repeat after treatment 6.1, BUN 45, creatinine 2.4, blood glucose is 126. ASSESSMENT/PLAN: 1. Hyperkalemia. The patient was given hyperkalemia treatment x2. She will also receive LOKELMA for a total of 6 doses under the recommendation of Dr. Strickland. We will recheck her potassium at 8 p.m. then again in the a.m. We will discharged her home to follow up with Dr. Strickland. Gently hydrate her overnight. 2. Chronic kidney disease stage III. 3. Diabetes mellitus type 2. We will place her on sliding scale. 4. Hypertension. We will continue home medications when verified. Hemodynamically stable. 5. Gastroesophageal reflux disease. 6. Further recommendations to follow physician evaluation, laboratory and diagnostic data. Dictated by SIVAN Pate for Jean Camejo MD cc: MD Trevor Burk MD Malcolm R. Hendricks, MD
--- NOTE | 2019-11-22 21:57 | HISTORY AND PHYSICAL ---
ADDENDUM: Patient seen and examined by myself. Full note dictated and discussed with nurse practitioner. Patient notes that she has not been feeling well. She has been dizzy and lightheaded at times, presenting to the ER secondary to Dr. Strickland having her come in because potassium was high. She has been treated in the ER. Potassium has dropped from 6.4 to 6.1. Therefore, we are going to admit her to the hospital, [facility] and will follow. cc: Jean Camejo MD
[2019-11-23 05:30] LABS: BASO# 0.01 X1000 (0.0-0.2); BASO% 0.1 % (0.0-0.8); EOS# 0.15 X1000 (0.0-0.7); EOS% 2.1 % (0.0-10.0); HEMATOCRIT 30.3 % (37.0-47.0); HEMOGLOBIN 8.9 g/dL (12.0-16.0); IMM GRAN# 0.01 X1000 (0.0-0.04); IMM GRAN% 0.1 % (0.0-0.5); LYMPH# 1.68 X1000 (1.2-3.4); LYMPH% 23.2 % (20.5-51.1); MCH 28.5 PG (27-31); MCHC 29.4 g/dL (33-37); MCV 97.1 FL (81-99); MONO# 0.74 X1000 (0.11-0.59); MONO% 10.2 % (1.7-9.3); MPV 11.3 FL (7.4-10.4); NEUT# 4.66 X1000 (1.4-6.5); NEUT% 64.3 % (42.2-75.2); PLT 139 X1000 (130-400); RBC 3.12 XMIL (4.2-5.4); RDW 17.3 % (11.5-14.5); WBC 7.25 X1000 (4.8-10.8)
[2019-11-23 06:02] LABS: AGAP 12; ALBUMIN 3.1 g/dL (3.5-5.0); ALKALINE PHOSPHATASE 84 U/L (32-104); BUN 39 mg/dL (8-22); CALCIUM 8.8 mg/dL (8.8-10.2); CHLORIDE 109 mmol/L (98-107); COSMO 298; ESTIMATED GFR 24; GLUCOSE 193 mg/dL (70-104); GOT 20 U/L (10-30); GPT 13 U/L (10-36); MAGNESIUM 1.8 mg/dL (1.5-2.7); POTASSIUM 4.7 mmol/L (3.5-5.1); SODIUM 142 mmol/L (136-145); TCO2 22 mmol/L (25-35); TOTAL BILIRUBIN < 0.15 mg/dL (0.20-1.00); TOTAL PROTEIN 6.3 g/dL (6.3-8.3)
--- NOTE | 2019-11-23 06:31 | EKG Report ---
Test Performed on : 11/23/2019 05:55:22 AM Test Reason : HYPERKALEMIA Blood Pressure : / mmHG Vent. Rate : 076 BPM Atrial Rate : 076 BPM P-R Int : 178 ms QRS Dur : 070 ms QT Int : 382 ms P-R-T Axes : 065 014 067 degrees QTc Int : 429 ms Normal sinus rhythm. Low voltage QRS Borderline ECG When compared with ECG of 22-NOV-2019 12:22, (Unconfirmed) No significant change was found Unconfirmed Result
[2019-11-23] MEDS ORDERED: ZOFRAN ODT PO PRN (07:19)
[2019-11-23 07:50] VITALS: BP 150/61
[2019-11-23] MEDS ORDERED: THERA M PLUS PO SCH (09:00)
[2019-11-23] MEDS ORDERED: APRESOLINE PO SCH (09:00)
[2019-11-23] MEDS ORDERED: COREG PO SCH (09:00)
[2019-11-23] MEDS ORDERED: NORVASC PO SCH (09:00)
[2019-11-23] MEDS ORDERED: PREDNISONE PO SCH (09:00)
[2019-11-23] MEDS ORDERED: NEURONTIN PO SCH (09:00)
[2019-11-23] MEDS ORDERED: PATIENT'S OWN MED PO SCH (09:00)
[2019-11-23] MEDS ORDERED: DIFLUCAN PO SCH (09:00)
[2019-11-23] MEDS ORDERED: CARAFATE PO SCH (09:00)
[2019-11-23] MEDS: LOKELMA POWDER PACKET PO SCH (09:52)
[2019-11-23] MEDS: LANTUS INSULIN SUBQ SCH ×2 (09:52→09:57)
[2019-11-23] MEDS: NS 1,000 ML IV SCH (09:57)
[2019-11-23] MEDS ORDERED: LOKELMA POWDER PACKET PO ONE (13:19)
--- NOTE | 2019-11-24 04:40 | DISCHARGE SUMMARY ---
ADMISSION DATE: 11/22/2019 DISCHARGE DATE: 11/23/2019 DISCHARGE DIAGNOSIS: 1. Hyperkalemia, resolved. Potassium 4.7 on discharge. 2. Chronic kidney disease stage 3. 3. Diabetes. 4. Hypertension. 5. Chronic reflux. CONSULTATIONS: Dr. Strickland. PROCEDURES: None. BRIEF HOSPITAL COURSE: The patient is a very pleasant 79-year-old female who presented to the hospital treated with Lokelma. Her potassium is back to normal. She therefore will be discharged home. She will follow up outpatient with Dr. Strickland for recheck. Thankfully, she had an uneventful hospital course. DISPOSITION: Patient will be discharged home. No changes made on her current prescription medications. She will follow up outpatient with Dr. Strickland. Again discussed with patient the importance of stopping smoking. cc: Jean Camejo MD
[2019-11-28] MEDS ORDERED: VITAMIN D PO SCH (09:00)
== END 2019-11-23 11:44 | disposition home or self-care (01) | DRG 641 ==
LOC: P.ED 11:02 → P.MEDSURG 17:41 → INTOOBSV 17:41
PROVIDERS: ATTEND Family Medicine